=== PATIENT | female | born 1945 | race Caucasian/White ===

== ENCOUNTER → 2017-07-16 09:03 | Outpatient (CLI) | payer MEDICARE, OTHER, SELFPAY ==
[2017-07-16 12:12] LABS: Absolute Neutrophil Count 3.9 X10^3/uL (2.0-7.7); Basophil# 0.03 X10^3/uL; Basophil% 0.5 % (0-1); Eosinophil# 0.31 X10^3/uL; Eosinophils% 5.5 % (0-5); Hemoglobin 13.8 g/dl (12.0-15.0); Lymphocyte % 17.8 % (19-41); Mean Corp Hgb Conc 33.7 g/gl (32-36); Mean Corpuscular Hgb 30.2 pg (27.0-32.0); Mean Corpuscular Volume 89.7 fL (81-99); Mean Platelet Vol. 10.2 fl (6.2-12.0); Monocyte# 0.38 X10^3/uL; Monocyte% 6.7 % (0-10); Neutrophil % 69.3 % (47-70); POSITIVE COUNT NO; POSITIVE DIFFERENTIAL NO; POSITIVE MORPHOLOGY NO; Platelet Count 134 K/mm3 (150-450); RBC Distribution Width SD 45.9 fl (35.1-43.9); Red Blood Count 4.57 M/mm3 (4.2-5.4); White Blood Count 5.6 K/mm3 (4.4-11.0)
[2017-07-16 12:35] LABS: ALB/GLOB Ratio 1.2 RATIO (0.9-2.4); AST(SGOT) 25 U/L (15-37); Alanine Aminotransfer ALT/SGPT 24 U/L (13-56); Albumin, Serum 3.8 g/dL (3.2-5.0); Alkaline Phosphatase 129 U/L (45-117); Anion Gap 7 (5-15); BUN 20 mg/dL (7-18); BUN/Creat Ratio 29.2 RATIO (10-20); Calcium,Total 8.5 mg/dL (8.5-10.1); Chloride 106 mmol/L (98-107); Cholesterol 190 mg/dL (200); Creatinine, Serum 0.68 mg/dL (0.55-1.02); EST Glomerular Filtration Rate 90 mL/min (>60); Est Glom Filt Rate - Afr Amer 109 mL/min (>60); Globulin 3.1 g/dL (2.2-4.2); Glucose 96 mg/dL (74-106); High Density Lipoprotein 36 mg/dL; Potassium 4.2 mmol/L (3.5-5.1); Protein, Total 6.9 g/dL (6.4-8.2); Sodium Level 143 mmol/L (136-145); Thyroid Stim Hormone (TSH) 2.74 uIU/mL (0.358-3.74); Triglycerides 124 mg/dL; Very Low Density Lipoprotein 25 mg/dL (5-40)
== END ==
PROVIDERS: Family Provider Family Medicine; PCP Family Medicine; Visit Provider Family Medicine
DX: E78.5 Hyperlipidemia, unspecified (principal); R63.4 Abnormal weight loss; R53.83 Other fatigue; Z85.3 Personal history of malignant neoplasm of breast
CPT/HCPCS: 36415; 80053; 80061; 84443; 85025

== ENCOUNTER → 2017-08-25 13:06 | Outpatient (CLI) | payer MEDICARE, OTHER, SELFPAY ==
--- NOTE | 2017-08-25 13:08 | BI_ITS ---
MAMMOGRAPHY - BILATERAL SCREENING REASON FOR EXAM: Female, 72 years old. Routine annual screening examination. PERTINENT HISTORY: Personal history of breast cancer. Prior left lumpectomy and radiation treatment. On with breast cancer. TECHNIQUE: Digital bilateral breast rosales (3D mammographic acquisition) in the CC and MLO projections. 2-D mediolateral oblique (MLO) and craniocaudad (CC) views of both breasts were obtained. CAD: Full Field Digital Mammography with Computer Added Detection was performed. COMPARISON: Comparison is made with prior outside examination dated August 05, 2016. FINDINGS: Breast Composition: The breasts are almost entirely fatty. The patient is status post lumpectomy in the upper deep portion of the left breast. Postoperative changes are seen. There has been no change as compared to prior study. No other significant abnormalities are identified. There has been no significant change since the prior study. BI/Bilat Brst Screen Rosales Add-On IMPRESSION: Stable bilateral screening mammogram. Yearly follow-up mammogram recommended. (A) ASSESSMENT CATEGORY: BIRADS Category 2: Benign. A letter regarding these results will be sent to the patient by the facility within 30 days. Approximately 10% of breast cancers are not detected by mammography. A normal mammogram should not delay biopsy of a clinically suspicious abnormality. [id number] Electronically Signed: Elder Christine MD at 9:25 EDT Tel [phone], Service support ,
--- NOTE | 2017-08-25 13:08 | BI_ITS ---
MAMMOGRAPHY - BILATERAL SCREENING REASON FOR EXAM: Female, 72 years old. Routine annual screening examination. PERTINENT HISTORY: Personal history of breast cancer. Prior left lumpectomy and radiation treatment. On with breast cancer. TECHNIQUE: Digital bilateral breast edward (3D mammographic acquisition) in the CC and MLO projections. 2-D mediolateral oblique (MLO) and craniocaudad (CC) views of both breasts were obtained. CAD: Full Field Digital Mammography with Computer Added Detection was performed. COMPARISON: Comparison is made with prior outside examination dated August 05, 2016. FINDINGS: Breast Composition: The breasts are almost entirely fatty. The patient is status post lumpectomy in the upper deep portion of the left breast. Postoperative changes are seen. There has been no change as compared to prior study. No other significant abnormalities are identified. There has been no significant change since the prior study. BI/SCREENING MAMM (CAD), BILAT IMPRESSION: Stable bilateral screening mammogram. Yearly follow-up mammogram recommended. (A) ASSESSMENT CATEGORY: BIRADS Category 2: Benign. A letter regarding these results will be sent to the patient by the facility within 30 days. Approximately 10% of breast cancers are not detected by mammography. A normal mammogram should not delay biopsy of a clinically suspicious abnormality. [id number] Electronically Signed: Elder Christine MD at 9:25 EDT Tel [phone], Service support ,
== END ==
PROVIDERS: Family Provider Family Medicine; PCP Family Medicine; Visit Provider Family Medicine
DX: Z12.31 Encounter for screening mammogram for malignant neoplasm of breast (principal)
CPT/HCPCS: 77063; 77067

== ENCOUNTER → 2017-10-06 10:24 | Outpatient (CLI) | payer MEDICARE, OTHER, SELFPAY ==
[2017-10-06 12:12] LABS: Magnesium 2.1 mg/dL (1.6-2.6); Potassium 4.4 mmol/L (3.5-5.1)
== END ==
PROVIDERS: Family Provider Family Medicine; PCP Family Medicine; Visit Provider Family Medicine
DX: R00.2 Palpitations (principal)
CPT/HCPCS: 36415; 83735; 84132

== ENCOUNTER → 2017-10-18 10:55 | Outpatient (CLI) | payer MEDICARE, OTHER, SELFPAY | PROVIDERS: Family Provider Family Medicine; PCP Family Medicine; Visit Provider Family Medicine | DX: R00.2 Palpitations (principal); R25.2 Cramp and spasm; I10 Essential (primary) hypertension | CPT/HCPCS: 93225; 93226 ==

== ENCOUNTER → 2018-04-12 13:19 | Outpatient (CLI) | payer MEDICARE, OTHER, SELFPAY ==
[2018-04-12 13:29] LABS: Mucous, Urine 0 SEEN /hpf (<or=2+); Red Blood Cells-Urine 0 SEEN /hpf (0-5)
[2018-04-12 15:22] LABS: Color, Urine Yellow (Yellow); Glucose, Dipstick Normal (Normal); Ketone-Dipstick Negative (Negative); Leukocyte Esterase-Dipstick 500 /ul (Negative); Nitrite-Dipstick Negative (Negative); Occult Blood-Urine Negative /ul (Negative); Protein-Dipstick Negative (Negative); Specific Gravity, Urine 1.015 (1.002-1.030); Urine Bilirubin Dipstick Negative (Negative); Urine Clarity Clear (Clear); Urine Urobilinogen Normal (Normal)
[2018-04-12 15:28] LABS: Bacteria RARE /hpf (None Seen); Squamous Epithelial Cells - UA 0-5 SEEN /hpf (5-10); Transitional Epithelial - Ur 0-5 SEEN /hpf (0-5); White Blood Cells 10-25 SEEN /hpf (0-5)
[2018-04-12 15:48] LABS: Absolute Neutrophil Count 3.9 X10^3/uL (2.0-7.7); Basophil# 0.04 X10^3/uL; Basophil% 0.7 % (0-1); Eosinophil# 0.34 X10^3/uL; Eosinophils% 5.8 % (0-5); Hematocrit 41.7 % (37-47); Hemoglobin 14.1 g/dl (12.0-15.0); Lymphocyte % 18.8 % (19-41); Mean Corp Hgb Conc 33.8 g/gl (32-36); Mean Corpuscular Hgb 30.1 pg (27.0-32.0); Mean Corpuscular Volume 89.1 fL (81-99); Mean Platelet Vol. 10.3 fl (6.2-12.0); Monocyte# 0.45 X10^3/uL; Monocyte% 7.7 % (0-10); Neutrophil # 3.91 X10^3/uL (2.7-7.7); Neutrophil % 66.7 % (47-70); Platelet Count 123 K/mm3 (150-450); RBC Distribution Width CV 13.6 % (11.6-14.6); RBC Distribution Width SD 44.3 fl (35.1-43.9); Red Blood Count 4.68 M/mm3 (4.2-5.4); White Blood Count 5.9 K/mm3 (4.4-11.0)
[2018-04-12 15:50] LABS: POSITIVE COUNT NO; POSITIVE DIFFERENTIAL NO; POSITIVE MORPHOLOGY NO
[2018-04-12 15:59] LABS: Erythrocyte Sedimentation Rate 2 mm/hr (0-30)
[2018-04-12 16:12] LABS: CRP 2.96 mg/L (0.0-3.0); Lipase 171 U/L (73-393)
[2018-04-14 15:20] LABS: Carbohydrate Ag 19-9 2261 4 U/mL (0-35); Carcinoembryonic Antigen 1.1 ng/mL (0.0-4.7)
--- OUTSIDE RECORDS SUMMARY | 2018-07-15 00:04 | XMS RPT_ITS ---
:1945 Author Organization OHIP Support Name Relationship Address Phone KOHLILAZARA Unavailable [address] + [place] [address] R Unavailable Unavailable Unavailable LAZARA KOHLI Unavailable [address] + [place] [address] R Unavailable Unavailable Unavailable LAZARA KOHLI Unavailable [address] + [place] [address] R Unavailable Unavailable Unavailable LAZARA KOHLI Unavailable [address] + [place] [address] R Unavailable Unavailable Unavailable LAZARA KOHLI Unavailable [address] + [place] [address] R Unavailable Unavailable Unavailable LAZARA KOHLI Unavailable [address] + [place] [address] R Unavailable Unavailable Unavailable LAZARA KOHLI Unavailable [address] + [place] [address] R Unavailable Unavailable Unavailable LAZARA KOHLI Unavailable [address] + [place] [address] R Unavailable Unavailable Unavailable LAZARA KOHLI Unavailable [address] + [place] [address] R Unavailable Unavailable Unavailable LAZARA KOHLI Unavailable [address] + [place] [address] UE Unavailable Unavailable Unavailable LAZARA KOHLI Unavailable [address] + [place] [address] UE Unavailable Unavailable Unavailable LAZARA KOHLI Unavailable [address] + [place] [address] UE Unavailable Unavailable Unavailable Care Team Providers Name Role Phone Dominic Holcomb Attending Unavailable Dominic Holcomb Primary Care Unavailable Dominic Holcomb Attending Unavailable Dominic Holcomb Referring Unavailable Dominic Holcomb Primary Care Unavailable Diane, Coleman Attending Unavailable Diane, Coleman Referring Unavailable Zhang, Dominic Primary Care Unavailable Diane, Coleman Attending Unavailable Diane, Coleman Referring Unavailable Zhang, Dominic Primary Care Unavailable Harley Andre Attending Unavailable Diane, Coleman Referring Unavailable Isckarus, Mansour Attending Unavailable Zhang, Dominic Primary Care Unavailable Zhang, Dominic Attending Unavailable Zhang, Dominic Primary Care Unavailable Zhang, Dominic Attending Unavailable Zhang, Dominic Primary Care Unavailable Zhang, Dominic Attending Unavailable Zhang, Dominic Primary Care Unavailable Zhang, Dominic Attending Unavailable Zhang, Dominic Referring Unavailable Zhang, Dominic Primary Care Unavailable Aldair Fitzgerald Attending Unavailable Isckarus, Mansour Attending Unavailable Zhang, Dominic Primary Care Unavailable Isckarus, Mansour Consulting Unavailable PROBLEMS PROBLEMS DATE TYPE CONDITION / CODE ATTENDING STATUS SOURCE 05/12/2018 Unknown R22.1 - Localized Coleman Contreras Active [place] swelling, mass and Community lump, neck / Hospital R22.1(ICD-10) Repository 05/04/2018 Unknown Z01.810 - Encounter Andre Souza Active [place] for preprocedural [facility] Hospital examination / Repository Z01.810(ICD-10) 04/12/2018 Unknown R59.1 - Generalized Dominic Holcomb Active [place] enlarged lymph nodes Community / R59.1(ICD-10) Hospital Repository 04/12/2018 Unknown D48.7 - Neoplasm of Dominic Holcomb Active [place] uncertain behavior Community of other specified Hospital sites / Repository D48.7(ICD-10) 10/18/2017 Unknown R25.2 - Cramp and Dominic Holcomb Active [place] spasm / Community R25.2(ICD-10) Hospital Repository 10/18/2017 Unknown I10 - Essential ZhangDominic begum Active [place] (primary) Community hypertension / Hospital I10(ICD-10) Repository 11/23/2017 Unknown R00.2 - Palpitations Aldair Fitzgerald Active [place] / R00.2(ICD-10) [facility] Hospital Repository 07/16/2017 Unknown R63.4 - Abnormal ZhangDominic begum Active [place] weight loss / Community R63.4(ICD-10) Hospital Repository 07/16/2017 Unknown Z85.3 - Personal Dominic Holcomb Active [place] history of malignant Community neoplasm of breast / Hospital Z85.3(ICD-10) Repository 07/16/2017 Unknown E78.5 - Dominic Holcomb Active [place] Hyperlipidemia, Community unspecified / Hospital E78.5(ICD-10) Repository 07/16/2017 Unknown R53.83 - Other Dominic Holcomb Active [place] fatigue / Community R53.83(ICD-10) Hospital Repository PROCEDURES PROCEDURES No Procedure Records FoundRESULTS RESULTS CBC W/DIFF, AUTOMATED Collected: 05/18/2018 Status: F Source: [place] 11:09 AM [facility] REPOSITORY Order Comment: Reason for Laboratory Test NEW PATIENT TYPE CODE TESTS RESULT OUT OF RANGE REFERENCE UNITS LAB L100.1000 4.4-11.0 K/mm3 Normal WBC 5.4 LAB L100.1200 4.2-5.4 M/mm3 Normal RBC 4.54 LAB L100.1300 12.0-15.0 g/dl Normal HGB 13.9 LAB L100.1400 37-47 % Normal HCT 40.7 LAB L100.1500 81-99 fL Normal MCV 89.6 LAB L100.1600 27.0-32.0 pg Normal MCH 30.6 LAB L100.1700 32-36 g/gl Normal MCHC 34.2 LAB L100.1810 11.6-14.6 % Normal RDW CV 13.7 LAB L100.1820 35.1-43.9 fl High RDW SD 44.5 LAB L100.1900 150-450 K/mm3 Low PLT 105 LAB L100.2000 6.2-12.0 fl Normal MPV 9.8 LAB L100.2100 47-70 % Normal NEUT% 61.0 LAB L100.2200 19-41 % Normal LY% 19.2 LAB L100.2300 0-10 % High MONO% 10.5 LAB L100.2400 0-5 % High EO% 8.5 LAB L100.2500 0-1 % Normal BASO% 0.6 LAB L100.2550 0.0-0.9 % Normal IM GRAN % 0.200 Result Comment: IG% - Immature Granulocytes (promyelocytes, myelocytes and metamyelocytes) > 1% indicates that a LEFT SHIFT is Present. LAB L100.2620 2.0-7.7 X10 3/uL Normal Absolute Neut 3.3 LAB L100.2720 0.83-4.51 X10 3/ul Normal Absolute Lymph 1.04 Performed By: #### L100.0100 #### [facility] [place], [address] COMPREHENSIVE METABOLIC Collected: 05/18/2018 Status: F Source: [place] 11:09 AM [facility] REPOSITORY Order Comment: Reason for Laboratory Test NEW PATIENT Serial Specimen #1, #2 or #3? 1 TYPE CODE TESTS RESULT OUT OF RANGE REFERENCE UNITS LAB L501.0100 74-106 mg/dL Normal GLU 89 Result Comment: Please note revised GLUCOSE reference range effective 2017. LAB L501.1000 7-18 mg/dL High BUN 19 LAB L501.1100 0.55-1.02 mg/dL Normal CREAT,SERUM 0.62 Result Comment: The validity of the calculated GFR AND GFRAA in patients over 70 years has not been determined. Clinical correlation is essential. LAB L501.1110 >60 mL/min Normal EST GFR 100 Result Comment: Non- GFR Calc LAB L501.1115 >60 mL/min Normal EST GFR - AA 121 Result Comment: GFR Calc LAB L501.1255 ml/min Normal Estimated CRCL 54.71 LAB L501.1300 10-20 RATIO High BUN/CRE 30.4 LAB L501.1500 6.4-8. g/dL Normal 2 T PROT 7.0 LAB L501.1800 3.2-5. g/dL Normal 0 ALB 4.0 LAB L501.1950 2.2-4. g/dL Normal 2 GLOB 3.0 LAB L501.2000 0.9-2. RATIO Normal 4 A/G 1.3 LAB L501.2200 8.5-10 mg/dL Normal .1 CA 9.0 LAB L501.4100 15-37 U/L Normal AST 26 LAB L501.4305 45-117 U/L High ALK P 179 LAB L501.4405 13-56 U/L Normal ALT 22 LAB L501.4600 0.20-1 mg/dL Normal .00 T BILI 0.90 LAB L501.5300 136-14 mmol/L Normal 5 NA 143 LAB L501.5600 3.5-5. mmol/L Normal 1 K 4.2 LAB L501.5900 98-107 mmol/L Normal CL 106 LAB L501.6100 21.0-3 mmol/L Normal 2.0 CO2 27.0 LAB L501.6200 5-15 Normal GAP 10 Performed By: #### L500.4050, L501.1400, L504.2610 #### [facility] [address] [place], [address] URIC ACID Collected: 05/18/2018 Status: F Source: [place] 11:09 AM [facility] REPOSITORY Order Comment: Reason for Laboratory Test NEW PATIENT Serial Specimen #1, #2 or #3? 1 TYPE CODE TESTS RESULT OUT OF RANGE REFERENCE UNITS LAB L501.1400 2.6-6.0 mg/dL High URIC 7.1 Result Comment: The drugs N-Acetylcysteine and Metamizole may falsely depress this assay. Performed By: #### L500.4050, L501.1400, L504.2610 #### [facility] [address] [place], [address] LDH Collected: 05/18/2018 Status: F Source: [place] 11:09 AM [facility] REPOSITORY Order Comment: Reason for Laboratory Test NEW PATIENT Serial Specimen #1, #2 or #3? 1 TYPE CODE TESTS RESULT OUT OF RANGE REFERENCE UNITS LAB L504.2610 84-246 U/L Normal LDH 183 Performed By: #### L500.4050, L501.1400, L504.2610 #### [facility] [address] [place], [address] ONCOLOGY HISTORY AND Observed: 05/18/2018 Status: F Source: [place] PHYSICAL 10:52 AM [facility] REPOSITORY [facility] Medical Records Department [address] [facility] [place] [address] History and Physical 05/18/18 1034 MR#: [id number] Acct: [id number] Name: DOROTHY KOHLI Rep #: [id number] : 1945 72 From: Turner Garcia MD PCP: Dominic Holcomb DO Status: REG RCR Y Location: OMD - Problem List (1) Follicular lymphoma Status: Acute (2) Thrombocytopenia Status: Chronic Subjective Date of Service:: 05/18/18 Chief Complaint: Lymphoma, new diagnosis History of Present Illness: Patient is a 72-year-old female with a past medical history notable for stage 0 carcinoma of the left breast status post lumpectomy followed by radiation therapy and then tamoxifen for 3 years (discontinued because of hot flashes), care was at [facility]. March 2018 around Christmastime she noticed painlessly enlarging lymph nodes in her neck. She did seek medical attention and a biopsy from an enlarging right neck mass revealed a low grade follicular lymphoma. In retrospect and following recent scans she admitted that she had also noted some enlarged lymph nodes in her armpits and groins. Over the past 2 years or so she has lost 30 pounds of weight but she has been actively doing so she still has a good appetite. She still suffers from the hot flashes since the time of tamoxifen even though the drug has been discontinued but these have not changed. There is no drenching night sweats. March 2018 CT neck: Extensive adenopathy from levels 1 through 7. The largest is on the left side of level 4 and measures 3.4 x 2.[address] cm. March of 2018 CT chest: Pathologically enlarged supraclavicular, axillary, mediastinal and hilar lymph nodes highly suspicious for an underlying neoplastic process such as lymphoma. March 2018 CT abdomen and pelvis: Extensive lymphadenopathy throughout the abdomen and pelvis most pronounced within the mesentery and retroperitoneum concerning for an underlying neoplastic process such as lymphoma. Splenomegaly. The largest lymph node mass visualized in March of 2018 is a conglomerate of lymph nodes within the mesentery which measures up to 10.5 x 4.5 x 13.5 cm. Health History: Past Medical History Cancer: Breast cancer Past Medical History (Last Reviewed 05/18/18 @ 09:52 by Carli Castle) Arthritis (Acute) Breast cancer (Acute) Glaucoma (Acute) H/O: hysterectomy (Acute) Hearing problem (Acute) Macular degeneration of left eye (Acute) Seasonal allergies (Acute) Vision problems (Acute) Past Surgical History (Last Reviewed 05/18/18 @ 09:53 by Carli Castle) History of appendectomy (Acute) History of lumpectomy of left breast (Acute) History of vein stripping (Acute) Hx of tonsillectomy (Acute) Family History (Last Reviewed 05/18/18 @ 09:53 by Carli Castle) Aunt Breast cancer Brother Myocardial infarction Father CVA (cerebral vascular accident) Dementia Hypertension Mother Dementia Hypertension Arthritis Allergies/Adverse Reactions: Allergy/AdvReac Type Severity Reaction Status Date / Time No Known Allergies Allergy Unverified 05/18/18 09:54 Risk Factors Social History Smoking Status Never smoker Tobacco Risk Data: Tobacco Risk Smoking Status Never smoker Type of tobacco: Smokeless tobacco usage: Never Items/Day: Year started: Years used: Counseled to quit/cut down: Reason for no counseling performed: Reason for no pharmacotherapy: Tobacco use comments: Passive smoke exposure: No Substance Risk Drug use: No Caffeine use [drinks/day]: 2 Alcohol use: Yes Type of alcohol: occasionally Drinks per day: Has patient felt the need to cut down: Has the patient been annoyed by complaints: Has the patient felt guilty about drinking: 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 Denies: Fever, Sweats, Weight loss, Appetite change, Chills Cardiovascular:: Denies: Chest pain, Palpitations, Dyspnea on exertion, Orthopnea, PND, Shortness of breath Respiratory: Denies: Cough, Hemoptysis, Shortness of Breath, Wheezing Gastrointestinal:: Denies: Abdominal pain, Nausea, Vomiting, Diarrhea, Constipation, Hematochezia Genitourinary: Denies: Dysuria, Hematuria, 15, Flank pain Musculoskeletal:: Denies: Back pain, Myalgia, Arthralgia Skin: Denies: Rash, Skin Changes, Wounds Neurological:: Denies: Headache, Dizziness, Visual changes, Tinnitus, Hearing loss Psychiatric: Denies: Anxiety, Depression, Homicidal Ideations, Suicidal Ideations Vital Signs Height 5 ft 9.5 in Weight: 90.809 kg Weight in Pounds 200.2 lbs Pulse Ox 95 - Physical Exam General: Alert, Oriented x3, No apparent distress, - - ECOG 0, overweight HEENT: Atraumatic, PERRLA, EOMI, Normocephalic Oropharynx:: Dry mucosa Neck:: Supple, Trachea midline. Negative for: JVD, bilateral Cardiac:: Regular rate, Regular rhythm, Normal S1, Normal S2. Negative for: Murmur Lungs: Clear to auscultation, Excusion symmetrical. Negative for: Rhonchi, Wheezes Abdomen:: Soft, Non-tender, Non-distended. Negative for: Hepatosplenomegaly Extremities:: Negative for: Cyanosis, Edema Neurological: Neuro grossly intact Skin:: Negative for: Lesions, Rash, Petechiae, Ecchymosis Psychiatric:: Appropriate affect, Euthymic Lymphatics:: Cervical lymphadenopathy, Supraclavicular lymphadenopathy, Axillary lymphadenopathy, Inguinal lymphadenopathy, - - Generalized lymph node enlargement 1-2 cm overall, the largest lymph node mass is not the right neck measuring 3 cm and slightly tender at the site of recent biopsy Assessment and Plan 72-year-old female with at least stage IIIA low-grade follicular lymphoma diagnosed by biopsy and CT imaging March 2018. The patient is asymptomatic apart from being aware of the enlarging lymph nodes. Nonetheless she does have a CT evidence of high tumor burden by GELF criteria with a conglomerate lymph node mass in the abdomen measuring over 7 cm . FLIPI score is pending further workup at this time She has a chronic Mild thrombocytopenia (at least since June 2017) That is most likely related to her lymphoma. Plan: 1. CBC, CMP, LDH, uric acid and hepatitis serology. 2. PET-CT to complete initial staging. 3. Bone marrow biopsy to complete staging will be prior to initiating any systemic therapy. Patient was seen with her impression and plan discussed Medications: Prescriptions This Visit Medication Instructions Recorded Cholecalciferol (Vitamin D3) 2,000 unit PO DAILY 05/16/18 [Vitamin D3] Primary Care Provider: Dominic Holcomb DO Referring Provider: 05/18/18 1052 <Electronically signed by Turner Garcia MD> Date Turner Garcia MD Cosigner Signature: Date (if applicable) CC: Coleman Contreras MD; Turner Garcia MD; Dominic Holcomb DO Signed LYMPH NODE REGIONAL Observed: 05/03/2018 Status: F Source: [place] RESECTION 10:00 AM [facility] REPOSITORY Patient: DOROTHY KOHLI : 1945 (72/F) Acct Num: [id number] Phys: Diane TOBIAS,Coleman Unit Num: [id number] Loc: LABSPEC Specimen: [id number] Received: 05/03/18 - 1154 Spec Type: LYM NODES THIS IS A CORRECTED REPORT TISSUES 1 TISSUES: Lymph node of neck, NOS COMMENT Immunohistochemistry ([id number]) supports the above diagnosis. Flow cytometry analysis performed at [facility] supports the above diagnosis. The complete flow analysis is viewable in patient's EMR. Touch prep smears (Diff-Quik and H AND E stains) reveal a polytypic lymphocyte population. Case has been reviewed in consultation with Dr. Viveros who concurs with the above diagnosis. IDC:SJ GROSS DESCRIPTION Received in saline is one container labeled with the patient's name and designated lymph node. The specimen consists of one irregular fragment of light cho soft tissue that measures 2 x 1.5 x 0.8 cm. The specimen is totally submitted in two cassettes. A portion is submitted for flow cytometry analysis. / RY:meghna 05/03/18 TC:0 CPT: 58910, 95850 HEADER OPERATION: Right neck biopsy PRE-OP DIAGNOSIS: Right neck mass TISSUE SUBMITTED: Lymph node, right neck (in saline) MICROSCOPIC DESCRIPTION Slides are reviewed. MICROSCOPIC DIAGNOSIS Right neck lymph node, biopsy: Consistent with follicle center lymphoma, low grade. AM:meghna 05/05/18 Signed Coleman Ravi DO 05/06/18 <signature on file> Performed By: #### PLYM #### [facility] [address] [place], [address] MISCELLANEOUS LAB Collected: 05/03/2018 Status: F Source: [place] PROCEDURE 10:00 AM [facility] REPOSITORY Order Comment: Comments: [id number] Rt neck mass bx Test(s) Ordered: Flow [id number] TYPE CODE TESTS RESULT OUT OF RANGE REFERENCE UNITS LAB L801.1541 Normal [facility] LAB FLOW SEE PATH TEST Performed By: #### L801.1541 #### [place] [facility] [address] [place], [address] IMMUNOHISTOCHEMISTRY Observed: 05/03/2018 Status: F Source: [place] 12:00 AM [facility] REPOSITORY Patient: DOROTHY KOHLI : 1945 (72/F) Acct Num: [id number] Phys: Coleman Contreras MD Unit Num: [id number] Loc: LABSPEC Specimen: [id number] Received: 05/04/18 - 1046 Spec Type: IMMUNO TISSUES 1 TISSUES: Lymph node of neck, NOS - #2 SPECIMEN INFORMATION: Tissue Source: Lymph node, right neck Clinical Info: Right neck mass Specimen Number: [id number] #2 CPT code: 27717, 46714 x17 METHODOLOGY: Deparaffinized sections of prefer/formalin-fixed tissue or PAP/DQ stained slides are incubated with monoclonal/polyclonal antibodies/oligonucleotide probes. Localization is made via biotin free immunoperoxidase method. Appropriate controls are performed and reacted as expected. Results on target cell population are indicated in the following table: RESULTS: ANTIBODY / CLONE RESULT Block 2 CD3 (PS1) negative CD5 (SP10) negative CD20 (L26) positive CD45 (RP2/18) positive CD79a (11E3) positive CD138 (B-A38) negative AE1-3 (AE1/AE3/PCK26) negative CD10 (56C6) positive CD15 (MMA) negative CD23 (1B12) negative CD30 (Ajit-H2) negative BCL-2 (bcl-2/100/D5) positive BCL-6 (LV250R/A8) positive Cyclin D1/BCL-1 (SP4) negative MUM1 (MRQ-43) positive, <10% C-MYC (Y69) negative CD43 (L60) negative Ki-67 (30-9) positive, low These tests were developed and their performance characteristics determined by [facility]. They may not have been cleared or approved by the U.S. Food and Drug Administration. The FDA has determined that such clearance or approval is not necessary. INTERPRETATION: Lymph node, right neck, biopsy: Consistent with follicle center lymphoma, low grade. AM:rg 05/05/18 Case has been reviewed in consultation with Dr. Viveros who concurs with the above diagnosis. IDC:[facility] [place] [id number] Signed Coleman Ravi DO 05/06/18 <signature on file> Performed By: #### PIMM #### [facility] [address] [place] [address]. [place], [address] 12 LEAD ELECTROCARDIOGRAM Observed: 04/22/2018 Status: F Source: [place] 3:30 PM [facility] REPOSITORY [facility] Cardiovascular Services [address] [place] [address] 12 Lead EKG 04/20/18 1553 MR#: [id number] Acct: [id number] Name: DOROTHY KOHLI Rep #: [id number] : 1945 72 From: Andre Souza MD Attending Dr: Coleman Contreras MD Status: REG CLI Ordering Dr: Coleman Contreras MD Date: 04/20/18 Location: LAB Sex: F C Admitted: Test Reason : PRE OP Blood Pressure : / mmHG Vent. Rate : 073 BPM Atrial Rate : 073 BPM P-R Int : 156 ms QRS Dur : 110 ms QT Int : 398 ms P-R-T Axes : 049 -09 047 degrees QTc Int : 438 ms Normal sinus rhythm Confirmed by HARLEY TOBIAS, ANDRE ([id number]), general expeditor LEXI HUTCHINSON ([id number]) on 04/22/2018 3:29:29 PM Referred By: Coleman Contreras Confirmed By:ANDRE SOUZA MD 04/22/18 1529 Date Andre Souza MD CC: Coleman Contreras MD; Dominic Zhang Signed CBC-COMPLETE BLOOD CNT Collected: 04/20/2018 Status: F Source: [place] NO DIFF 3:38 PM [facility] REPOSITORY TYPE CODE TESTS RESULT OUT OF RANGE REFERENCE UNITS LAB L100.1000 4.4-11.0 K/mm3 Normal WBC 5.1 LAB L100.1200 4.2-5.4 M/mm3 Normal RBC 4.44 LAB L100.1300 12.0-15.0 g/dl Normal HGB 13.5 LAB L100.1400 37-47 % Normal HCT 39.6 LAB L100.1500 81-99 fL Normal MCV 89.2 LAB L100.1600 27.0-32.0 pg Normal MCH 30.4 LAB L100.1700 32-36 g/gl Normal MCHC 34.1 LAB L100.1810 11.6-14.6 % Normal RDW CV 13.5 LAB L100.1820 35.1-43.9 fl High RDW SD 44.0 LAB L100.1900 150-450 K/mm3 Low PLT 110 LAB L100.2000 6.2-12.0 fl Normal MPV 10.0 Performed By: #### L100.0500 #### [facility] [place], [address] BASIC METABOLIC Collected: 04/20/2018 Status: F Source: [place] PROFILE (BMP) 3:38 PM [facility] REPOSITORY TYPE CODE TESTS RESULT OUT OF RANGE REFERENCE UNITS LAB L501.0100 74-106 mg/dL Normal GLU 101 Result Comment: Fasting Glucose result from 100 to 125 mg/dL suggests IMPAIRED HOMEOSTASIS per A.D.A. criteria. Please note revised GLUCOSE reference range effective 2017. LAB L501.1000 7-18 mg/dL High BUN 19 LAB L501.1100 0.55-1.02 mg/dL Normal CREAT,SERUM 0.98 Result Comment: The validity of the calculated GFR AND GFRAA in patients over 70 years has not been determined. Clinical correlation is essential. LAB L501.1110 >60 mL/min Normal EST GFR 60 Result Comment: Non- GFR Calc LAB L501.1115 >60 mL/min Normal EST GFR - AA 72 Result Comment: GFR Calc LAB L501.1300 10-20 RATIO Normal BUN/CRE 19.5 LAB L501.2200 8.5-10.1 mg/dL CA Normal 9.1 LAB L501.5300 136-145 mmol/L NA Normal 144 LAB L501.5600 3.5-5.1 mmol/L K Normal 4.0 LAB L501.5900 98-107 mmol/L CL Normal 106 LAB L501.6100 21.0-32.0 mmol/L Normal CO2 31.0 LAB L501.6200 5-15 Normal GAP 7 Performed By: #### L500.2500 #### [facility] [address] [place], [address] CREATININE FINGERSTICK Collected: 04/18/2018 Status: F Source: [facility] 3:54 PM [facility] REPOSITORY TYPE CODE TESTS RESULT OUT OF RANGE REFERENCE UNITS LAB L9100.0210 0.55-1.02 mg/dL Normal CREATININE WB 1.0 Performed By: #### L9100.0200 #### [facility] Point of Care [address] [place] [address] ABDOMEN/PELVIS W IV CONT Observed: 04/18/2018 Status: F Source: [place] ONLY 3:44 PM [facility] REPOSITORY [facility] Imaging Services [address] [place] [address] Abdomen/Pelvis W IV Cont ONLY MR#: [id number] Acct: [id number] Name: DOROTHY KOHLI Rep #: [id number] : 1945 F 72 From: Elena James MD PCP: Dominic Holcomb DO Status: REG CLI Study: Abdomen/Pelvis W IV Cont ONLY Date of Exam: 04/18/18 Exam# [id number] Ordering Dr: Dominic Holcomb DO STUDY: CT ABDOMEN AND PELVIS WITH CONTRAST REASON FOR EXAM: Female, 72 years old. Breast cancer with radiation. Left lumpectomy. Swollen lymph nodes. RADIATION DOSAGE (If Supplied By Facility): CTDIvol = ( 17.47 ) mGy, DLP = ( 2346.07 ) mGycm TECHNIQUE: Transaxial images were obtained from the dome of the diaphragm to the symphysis pubis without oral contrast. 100 ml of Isovue 300 contrast was administered. Sagittal and coronal images were reconstructed. Individualized dose optimization techniques were used for this CT. COMPARISON: None. FINDINGS: Please note there is a separate dedicated CT report of the chest. Normal liver. Normal gallbladder and extrahepatic biliary system. The spleen measures up to 20 cm in the craniocaudal dimension. Normal pancreas. There are pathologically enlarged lymph nodes within the holden hepatis, gastrohepatic region and mesentery. There is a conglomerate of lymph nodes within the mesentery which measures up to 10.5 x 4.5 x 13.5 cm. Normal bilateral adrenal glands. There is mild bilateral hydronephrosis present. Normal visualized stomach. Normal small intestine. Normal colon. There is non-visualization of the appendix. There is diffuse atherosclerotic calcification of the abdominal aorta, without a demonstrated aneurysm. Normal inferior vena cava. There is retroperitoneal lymphadenopathy with enlarged nodes greater than 10-15mm in the short axis. There are pathologically enlarged lymph nodes throughout the pelvis visualized as well; construction sales representative lymph nodes include a 2.3 cm in short axis left pelvic sidewall and a 1.6 cm right pelvic sidewall lymph node. There are enlarged inguinal lymph nodes measuring up to 2 cm on the right and 1.9 cm on the left. Normal urinary bladder. Normal abdominal wall. There are diffuse degenerative changes of the visualized lumbar spine. There is a grade 1 anterior spondylosis is of L4 on L5. CT/Abdomen/Pelvis W IV Cont ONLY IMPRESSION: Extensive lymphadenopathy throughout the abdomen and pelvis most pronounced within the mesentery and retroperitoneum concerning for an underlying neoplastic process such as lymphoma. Splenomegaly. Atherosclerosis. Degenerative changes. Electronically Signed: Elena James MD at 16:39 EST Tel , Service support , CC: Dominic Holcomb DO Police Judge: Signed CHEST WITH CONTRAST Observed: 04/18/2018 Status: F Source: [facility] 3:44 PM [facility] REPOSITORY [facility] Imaging Services [address] [place] [address] Chest WITH Contrast MR#: [id number] Acct: [id number] Name: DOROTHY KOHLI Rep #: [id number] : 1945 F 72 From: Elena James MD PCP: Dominic Holcomb DO Status: REG CLI Study: Chest WITH Contrast Date of Exam: 04/18/18 Exam# [id number] Ordering Dr: Dominic Holcomb DO STUDY: CT CHEST WITH CONTRAST REASON FOR EXAM: Female, 72 years old. Breast cancer with radiation. Lymphadenopathy. RADIATION DOSAGE (If Supplied By Facility): CTDIvol = ( 17.47 ) mGy, DLP = ( 2346.07 ) mGycm TECHNIQUE: Transaxial imaging was performed following intravenous administration of 100CC ml of Isovue 300 contrast material. Individualized dose optimization techniques were used for this CT. COMPARISON: None. FINDINGS: There are pathologically enlarged supraclavicular and axillary lymph nodes. 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 There is a round low-attenuation focus within the left lobe of the thyroid gland measuring up to 2.2 cm. There is no focal consolidation. There are no suspicious pulmonary nodules. There is a single bulla within the left upper lobe. There is minimal right basilar atelectasis. There are calcifications of the coronary arteries. 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 There are calcified nonpathologic enlarged left hilar and mediastinal lymph nodes visualized as well. Normal enhanced pulmonary arteries. Normal aorta arch and descending thoracic aorta. There are multi-level degenerative changes of the thoracic spine. There are postsurgical changes within the left breast. Please note there is a separate dedicated CT report of the abdomen and pelvis. CT/Chest WITH Contrast IMPRESSION: Pathologically enlarged supraclavicular, axillary, mediastinal and hilar lymph nodes highly suspicious for an underlying neoplastic process such as lymphoma. Indeterminate 2.2 cm low-attenuation focus within the left lobe of the thyroid gland, consider ultrasound for further evaluation. Atherosclerosis. Electronically Signed: Elena James MD at 18:00 EST Tel , Service support , CC: Dominic Holcomb DO Police Judge: Signed SOFT TISSUE NECK WITH Observed: 04/18/2018 Status: F Source: [facility] CONTR[facility] 3:44 PM [facility] REPOSIT[facility] Imaging Services [address] [place] [address] Soft Tissue Neck WITH Contrast MR#: [id number] Acct: [id number] Name: DOROTHY KOHLI Rep #: [id number] : 1945 F 72 From: Michael Corona MD PCP: Dominic Holcomb DO Status: REG CLI Study: Soft Tissue Neck WITH Contrast Date of Exam: 04/18/18 Exam# [id number] Ordering Dr: Dominic Holcomb DO STUDY: CT SOFT TISSUE NECK WITH CONTRAST REASON FOR EXAM: Female, 72 years old. History of breast cancer with radiation RADIATION DOSAGE (If Supplied By Facility): CTDIvol = ( 17.47 ) mGy, DLP = ( 2346.07 ) mGycm TECHNIQUE: The patient was scanned in a multi-detector CT scanner. High resolution transaxial imaging was performed following intravenous administration of 100CC ml of Isovue 300 contrast material. Sagittal and coronal images were reconstructed. Individualized dose optimization techniques were used for this CT. COMPARISON: None. FINDINGS: SUPRAHYOID HEAD AND NECK TIRE TECHNICIAN SPACE (INCLUDING SUPRAZYGOMATIC PORTION): Normal with no evidence of an accessory parotid lobe. No calcification in parotid duct. PARAPHARYNGEAL SPACE: Normal and symmetric. No evidence of asymmetric pterygoid plexus. RETROPHARYNGEAL SPACE: Normal with no enlarged nodes of Rouvier laterally CAROTID SPACE: Normal PERIVERTEBRAL SPACE: The prevertebral and paraspinal components are normal. PAROTID SPACE: Negative PHARYNGEAL MUCOSAL SPACE: The nasopharyngeal and oropharyngeal spaces including the tongue base are normal with no tonsillitis, adenoidal hypertrophy or any neoplastic processes. ORAL CAVITY : The mucosal surfaces including the anterior two thirds of the tongue and the submandibular and sublingual spaces are normal INFRAHYOID HEAD AND NECK: VISCERAL SPACE: The there is a left lobe of thyroid with a 2.2 cm area of low attenuation within in the enlarged left lobe THE CAROTID, RETROPHARYNGEAL, PERIVERTEBRAL and POSTERIOR CERVICAL SPACES (Containing The Spinal Accessory Lymph Nodes): Normal . ORBITS AND PARANASAL SINUSES: Negative CERVICAL LYMPH NODES: Extensive the left supraclavicular (level 4) adenopathy with the largest lymph node measuring 3.4 x 2.8 cm. Adenopathy is a level 1 level IIa and IIb bilaterally and level 3. 2 small low 5 lymph nodes bilaterally.. A large 2.2 cm right upper paratracheal (station 2R) is noted. CT/Soft Tissue Neck WITH Contrast IMPRESSION: The uterus spaces in the head and neck region clear except for the presence of a lesion in the left lobe of the thyroid gland. Extensive adenopathy from levels 1 through 7. The largest is on the left side of level 4 and measures 3.4 x 2.8 cm Electronically Signed: Michael Corona MD at 5:09 EST Tel , Service support , CC: Dominic Holcomb DO Police Judge: Signed URINALYSIS, COMPLETE Collected: 04/12/2018 Status: F Source: [facility] 1:21 PM [facility] REPOS[facility] Order Comment: How was Urine Obtained? CLEAN CATCH TYPE CODE TESTS RESULT OUT OF REFERENCE UNITS RANGE LAB L400.3000 Yellow COLOR Normal Yellow LAB L400.3050 Clear CLARITY Normal Clear LAB L400.3200 Normal mg/dl GLUCOSE, UR Normal Normal LAB L400.3300 Negative mg/dL BILIRUBIN Normal URINE Negative LAB L400.3400 Negative mg/dl KETONE UR Normal Negative LAB L400.3465 1.002-1.030 SP.GR. Normal DIPSTX 1.015 LAB L400.3550 5.0 - 8.0 pH UR Normal 6.0 LAB L400.3600 Negative mg/dl PROT DIPSTX Normal Negative LAB L400.3700 Normal mg/dl UROBILI Normal Normal LAB L400.3750 Negative NITRITE UR Normal Negative LAB L400.3780 Negative /ul OCCULT Normal BLOOD-UR Negative LAB L400.3800 Negative /ul LEUK High ESTERASE 500 LAB L400.4050 0-5 /hpf WBC Normal 10-25 SEEN LAB L400.4100 0-5 /hpf RBC-UA Normal 0 SEEN LAB L400.4150 5-10 /hpf SQUAM EPI Normal 0-5 SEEN LAB L400.4200 0-5 /hpf Normal TRANSITIONAL EP 0-5 SEEN LAB L400.4300 None Seen /hpf BACTERIA Normal RARE LAB L400.4350 <or=2+ /hpf MUCUS, Normal URINE 0 SEEN Performed By: #### L400.0001 #### [facility] [address] [place], [address] CBC W/DIFF, AUTOMATED Collected: 04/12/2018 Status: F Source: [facility] 1:21 PM [facility] TYPE CODE TESTS RESULT OUT OF RANGE REFERENCE UNITS LAB L100.1000 4.4-11.0 K/mm3 Normal WBC 5.9 LAB L100.1200 4.2-5.4 M/mm3 Normal RBC 4.68 LAB L100.1300 12.0-15.0 g/dl Normal HGB 14.1 LAB L100.1400 37-47 % Normal HCT 41.7 LAB L100.1500 81-99 fL Normal MCV 89.1 LAB L100.1600 27.0-32.0 pg Normal MCH 30.1 LAB L100.1700 32-36 g/gl Normal MCHC 33.8 LAB L100.1810 11.6-14.6 % Normal RDW CV 13.6 LAB L100.1820 35.1-43.9 fl High RDW SD 44.3 LAB L100.1900 150-450 K/mm3 Low PLT 123 LAB L100.2000 6.2-12.0 fl Normal MPV 10.3 LAB L100.2100 47-70 % Normal NEUT% 66.7 LAB L100.2200 19-41 % Low LY% 18.8 LAB L100.2300 0-10 % Normal MONO% 7.7 LAB L100.2400 0-5 % High EO% 5.8 LAB L100.2500 0-1 % Normal BASO% 0.7 LAB L100.2550 0.0-0.9 % Normal IM GRAN % 0.300 Result Comment: IG% - Immature Granulocytes (promyelocytes, myelocytes and metamyelocytes) > 1% indicates that a LEFT SHIFT is Present. LAB L100.2620 2.0-7.7 X10 3/uL Normal Absolute Neut 3.9 LAB L100.2720 0.83-4.51 X10 3/ul Normal Absolute Lymph 1.10 Performed By: #### L100.0100, L101.9900 #### [facility] [address] [facility] [id number] ERYTHROCYTE SED RATE Collected: 04/12/2018 Status: F Source: [facility] 1:21 PM [facility] TYPE CODE TESTS RESULT OUT OF RANGE REFERENCE UNITS LAB L102.0000 0-30 mm/hr Normal SED RATE 2 Performed By: #### L100.0100, L101.9900 #### [facility] [address] [facility] [id number] LIPASE Collected: 04/12/2018 Status: F Source: [facility] 1:21 PM [facility] TYPE CODE TESTS RESULT OUT OF RANGE REFERENCE UNITS LAB L501.2450 73-393 U/L Normal LIPASE 171 Performed By: #### L501.2450, L501.6710 #### [facility] [address] [facility] [address] CRP Collected: 04/12/2018 Status: F Source: [facility] 1:21 PM [facility] TYPE CODE TESTS RESULT OUT OF RANGE REFERENCE UNITS LAB L501.6710 0.0-3.0 mg/L Normal 2.96 C-REACTIVE PROT Result Comment: C-Reactive Protein (CRP) provides useful information for the diagnosis, therapy and monitoring of inflammatory processes and associated diseases. For the evaluation of Relative Risk for Cardiovascular Disease, a High Sensitivity CRP (HSCRP) should be ordered. Performed By: #### L501.2450, L501.6710 #### [facility] [address] [place], [address] Observed: 04/12/2018 Status: F Source: [facility] CULTURE, URINE 1:21 PM [facility] REPOS[facility] Urine Culture Culture exhibits no growth. Performed By: #### M100.0650 #### [facility] [address] [place], [address] CARCINOEMBRYONIC ANTIGEN Collected: 04/12/2018 Status: F Source: [facility] 1:21 PM [facility] TYPE CODE TESTS RESULT OUT OF RANGE REFERENCE UNITS LAB L3100.2300 0.0-4.7 ng/mL Normal CEA 1.1 Result Comment: Enrique ECLIA methodology Nonsmokers <3.9 Smokers <5.6 Performed at: [address] [id number] Employment Law Attorney: Felipe Rogers PhD, Phone: [phone] Performed By: #### L3100.2300, L3100.5017 #### [facility] (refer to report for specific site) refer to report for address and phone number CA 19-9 SERIAL Collected: 04/12/2018 Status: F Source: [facility] MONITOR 1:21 PM [facility] TYPE CODE TESTS RESULT OUT OF RANGE REFERENCE UNITS LAB L3100.5022 0-35 U/mL Normal CA 19-9 4 2261 Result Comment: Enrique ECLIA methodology LAB L3100.5025 Normal CA19-9 GRAPH Result Comment: Scanned image report available in EMR Performed By: #### L3100.2300, L3100.5017 #### [facility] (refer to report for specific site) refer to report for address and phone number MAGNESIUM Collected: 10/06/2017 Status: F Source: [facility] 10:26 AM [facility] TYPE CODE TESTS RESULT OUT OF RANGE REFERENCE UNITS LAB L501.5200 1.6-2.6 mg/dL Normal MG 2.1 Performed By: #### L501.5200, L501.5600 #### [facility] [address] [place], [place], [address] POTASSIUM Collected: 10/06/2017 Status: F Source: [facility] 10:26 AM [facility] TYPE CODE TESTS RESULT OUT OF RANGE REFERENCE UNITS LAB L501.5600 3.5-5.1 mmol/L Normal K 4.4 Performed By: #### L501.5200, L501.5600 #### [facility] [address] [place], [place], [address] SCREENING MAMM (CAD), Observed: 08/25/2017 Status: F Source: [facility] BILAT 1:09 PM [facility] REPOSIT[facility] Imaging Services [address] [place] [address] SCREENING MAMM (CAD), BILAT MR#: [id number] Acct: [id number] Name: DOROTHY KOHLI Rep #: [id number] : 1945 F 72 From: Elder Christine MD PCP: Dominic Holcomb DO Status: [facility] CLI Study: SCREENING MAMM (CAD), BILAT Date of Exam: 08/25/17 Exam# [id number] Ordering Dr: Dominic Holcomb DO MAMMOGRAPHY - BILATERAL SCREENING REASON FOR EXAM: Female, 72 years old. Routine annual screening examination. PERTINENT HISTORY: Personal history of breast cancer. Prior left lumpectomy and radiation treatment. On with breast cancer. TECHNIQUE: Digital bilateral breast rosales (3D mammographic acquisition) in the CC and MLO projections. 2-D mediolateral oblique (MLO) and craniocaudad (CC) views of both breasts were obtained. CAD: Full Field Digital Mammography with Computer Added Detection was performed. COMPARISON: Comparison is made with prior outside examination dated August 05, 2016. FINDINGS: Breast Composition: The breasts are almost entirely fatty. The patient is status post lumpectomy in the upper deep portion of the left breast. Postoperative changes are seen. There has been no change as compared to prior study. No other significant abnormalities are identified. There has been no significant change since the prior study. BI/SCREENING MAMM (CAD), BILAT IMPRESSION: Stable bilateral screening mammogram. Yearly follow-up mammogram recommended. (A) ASSESSMENT CATEGORY: BIRADS Category 2: Benign. A letter regarding these results will be sent to the patient by the facility within 30 days. Approximately 10% of breast cancers are not detected by mammography. A normal mammogram should not delay biopsy of a clinically suspicious abnormality. [id number] Electronically Signed: Elder Christine MD at 9:25 EDT Tel [phone], Service support , CC: Dominic Holcomb DO Police Judge: Signed BILAT BRST SCREEN Observed: 08/25/2017 Status: F Source: [facility] ROSALES ADD-ON 1:09 PM [facility] REPOSIT[facility] Imaging Services [address] [place] [address] Bilat Brst Screen Rosales Add-On MR#: [id number] Acct: [id number] Name: DOROTHY KOHLI Rep #: [id number] : 1945 F 72 From: Elder Christine MD PCP: Dominic Holcomb DO Status: REG CLI Study: Bilat Brst Screen Rosales Add-On Date of Exam: 08/25/17 Exam# [id number] Ordering Dr: Dominic Holcomb DO MAMMOGRAPHY - BILATERAL SCREENING REASON FOR EXAM: Female, 72 years old. Routine annual screening examination. PERTINENT HISTORY: Personal history of breast cancer. Prior left lumpectomy and radiation treatment. On with breast cancer. TECHNIQUE: Digital bilateral breast rosales (3D mammographic acquisition) in the CC and MLO projections. 2-D mediolateral oblique (MLO) and craniocaudad (CC) views of both breasts were obtained. CAD: Full Field Digital Mammography with Computer Added Detection was performed. COMPARISON: Comparison is made with prior outside examination dated August 05, 2016. FINDINGS: Breast Composition: The breasts are almost entirely fatty. The patient is status post lumpectomy in the upper deep portion of the left breast. Postoperative changes are seen. There has been no change as compared to prior study. No other significant abnormalities are identified. There has been no significant change since the prior study. BI/Bilat Brst Screen Rosales Add-On IMPRESSION: Stable bilateral screening mammogram. Yearly follow-up mammogram recommended. (A) ASSESSMENT CATEGORY: BIRADS Category 2: Benign. A letter regarding these results will be sent to the patient by the facility within 30 days. Approximately 10% of breast cancers are not detected by mammography. A normal mammogram should not delay biopsy of a clinically suspicious abnormality. [id number] Electronically Signed: Elder Christine MD at 9:25 EDT Tel [phone], Service support , CC: Dominic Holcomb DO Police Judge: Signed CBC W/DIFF, AUTOMATED Collected: 07/16/2017 Status: F Source: [facility] 9:06 AM [facility] REPOS[facility] TYPE CODE TESTS RESULT OUT OF RANGE REFERENCE UNITS LAB L100.1000 4.4-11.0 K/mm3 Normal WBC 5.6 LAB L100.1200 4.2-5.4 M/mm3 Normal RBC 4.57 LAB L100.1300 12.0-15.0 g/dl Normal HGB 13.8 LAB L100.1400 37-47 % Normal HCT 41.0 LAB L100.1500 81-99 fL Normal MCV 89.7 LAB L100.1600 27.0-32.0 pg Normal MCH 30.2 LAB L100.1700 32-36 g/gl Normal MCHC 33.7 LAB L100.1810 11.6-14.6 % Normal RDW CV 14.0 LAB L100.1820 35.1-43.9 fl High RDW SD 45.9 LAB L100.1900 150-450 K/mm3 Low PLT 134 LAB L100.2000 6.2-12.0 fl Normal MPV 10.2 LAB L100.2100 47-70 % Normal NEUT% 69.3 LAB L100.2200 19-41 % Low LY% 17.8 LAB L100.2300 0-10 % Normal MONO% 6.7 LAB L100.2400 0-5 % High EO% 5.5 LAB L100.2500 0-1 % Normal BASO% 0.5 LAB L100.2550 0.0-0.9 % Normal IM GRAN % 0.200 Result Comment: IG% - Immature Granulocytes (promyelocytes, myelocytes and metamyelocytes) > 1% indicates that a LEFT SHIFT is Present. LAB L100.2620 2.0-7.7 X10 3/uL Normal Absolute Neut 3.9 LAB L100.2720 0.83-4.51 X10 3/ul Normal Absolute Lymph 1.00 Performed By: #### L100.0100 #### [facility] [address] [facility] [place], [place], [address] COMPREHENSIVE METABOLIC Collected: 07/16/2017 Status: F Source: [facility] 9:06 AM [facility]POS[facility] TYPE CODE TESTS RESULT OUT OF RANGE REFERENCE UNITS LAB L501.0100 74-106 mg/dL Normal GLU 96 Result Comment: Please note revised GLUCOSE reference range effective 2017. LAB L501.1000 7-18 mg/dL High BUN 20 LAB L501.1100 0.55-1.02 mg/dL Normal CREAT,SERUM 0.68 Result Comment: The validity of the calculated GFR AND GFRAA in patients over 70 years has not been determined. Clinical correlation is essential. LAB L501.1110 >60 mL/min Normal EST GFR 90 Result Comment: Non- GFR Calc LAB L501.1115 >60 mL/min Normal EST GFR - AA 109 Result Comment: GFR Calc LAB L501.1300 10-20 RATIO High BUN/CRE 29.2 LAB L501.1500 6.4-8.2 g/dL T Normal PROT 6.9 LAB L501.1800 3.2-5.0 g/dL Normal ALB 3.8 LAB L501.1950 2.2-4.2 g/dL Normal GLOB 3.1 LAB L501.2000 0.9-2.4 RATIO Normal A/G 1.2 LAB L501.2200 8.5-10.1 mg/dL CA Normal 8.5 LAB L501.4100 15-37 U/L Normal AST 25 LAB L501.4305 45-117 U/L High ALK P 129 LAB L501.4405 13-56 U/L Normal ALT 24 Result Comment: Please note revised ALT reference range effective 2017. LAB L501.4600 0.20-1.00 mg/dL Normal T BILI 1.00 LAB L501.5300 136-145 mmol/L Normal NA 143 LAB L501.5600 3.5-5.1 mmol/L Normal K 4.2 LAB L501.5900 98-107 mmol/L Normal CL 106 LAB L501.6100 21.0-32.0 mmol/L Normal CO2 30.0 LAB L501.6200 5-15 Normal GAP 7 Performed By: #### L500.4050, L500.4100, L501.9520 #### [facility] [address] [place], [address] LIPID PROFILE Collected: 07/16/2017 Status: F Source: [facility] 9:06 AM [facility] REPOS[facility] TYPE CODE TESTS RESULT OUT OF RANGE REFERENCE UNITS LAB L501.4900 200 mg/dL Normal CHOL 190 Result Comment: <200 mg/dL Desirable 200-240 mg/dL Borderline >240 mg/dL High Risk LAB L501.5000 mg/dL Normal TRIG 124 Result Comment: The drugs N-Acetylcysteine and Metamizole may falsely depress this assay. Serum Triglycerides Reference Interval Normal <150 mg/dL Borderline high 150 - 199 mg/dL High 200 - 499 mg/dL Very High > or = 500 mg/dL LAB L501.6400 mg/dL Low HDL 36 Result Comment: The drugs N-Acetylcysteine and Metamizole may falsely depress this assay. Reference Range HDL <40 mg/dL Low HDL Cholesterol HDL >or= 60 mg/dL High HDL Cholesterol LAB L501.6500 0-130 mg/dL Normal LDL 129 LAB L501.6600 5-40 mg/dL Normal VLDL 25 Performed By: #### L500.4050, L500.4100, L501.9520 #### [facility] [address] [place], [address] THYROID STIM HORMONE Collected: 07/16/2017 Status: F Source: [facility] ([facility]) 9:06 AM [facility] REPOS[facility] TYPE CODE TESTS RESULT OUT OF RANGE REFERENCE UNITS LAB L501.9520 0.358-3.74 uIU/mL Normal TSH 2.74 Performed By: #### L500.4050, L500.4100, L501.9520 #### [facility] [address] [place], [address] ALLERGIES ALLERGIES DATE TYPE / CODE NAME / CODE REACTION SEVERITY SOURCE 05/18/2018 Drug No Known Unknown [facility] Allergy/4160 Allergies/F00 Hospital 33822(SNOMED [id number](RXNOR Repository CT) M) ENCOUNTERS ENCOUNTERS ADMIT/DISCHARGE ACCOUNT ADMITTING ENCOUNTER LOCATION SOURCE NUMBER CLASS 05/18/2018 [id number] Ambulatory BMSBuilding:[place] 3 [place].[facility] Repository 05/18/2018 [id number] Ambulatory [place] 3 [facility] ing:OMD Repository 05/03/2018 [id number] Ambulatory [place] 5 [facility] ing:LABSPEC Repository 04/20/2018 [id number] Ambulatory [place] 1 [facility] ing:LAB Repository 04/20/2018 [id number] Ambulatory BMSBuilding:W [place] 6 [facility] Repository 04/18/2018 [id number] Ambulatory [place] 8 [facility] ing:CT Repository 04/12/2018 [id number] Ambulatory [place] 6 [facility] ing:BFHLAB Repository 10/18/2017 [id number] Ambulatory [place] 6 [facility] ing:PSN Repository 10/18/2017 [id number] Ambulatory BMSBuilding:W [place] 8 [facility] Repository 10/06/2017 [id number] Ambulatory [place] 8 [facility] ing:BFHLAB Repository 08/25/2017 [id number] Ambulatory [place] 8 [facility] ing:OPBI Repository 07/16/2017 [id number] Ambulatory [place] 2 [facility] ing:BFHLAB Repository PAYERS PAYERS ENCOUNTER GUARANTOR PAYER SUBSCRIBER SOURCE 05/18/2018 DOROTHY A Primary DOROTHY A [place] [id number] Insurance:MEDICARE DOYLEDOB: [address], PART A [facility] [id number] [address]Pwq: Number: Repository [id number] () Date:2018-05-12 05/18/2018 Secondary DOROTHY A [place] Insurance:DELFINONAPolicy DOYLEDOB: [facility] Number: [id number] [id number] Repository Date:[id number] [address]QA: 05/18/2018 Tertiary NOT GIVENUNK [place] Insurance:SELF PAY [facility] Number: Effective Repository Date:2018-05-18 05/18/2018 DOROTHY A Primary DOROTHY A [place] [id number] Insurance:MEDICARE DOYLEDOB: [address], PART A [facility] [id number] [address]Bsp: Number: Repository [id number] () Date:2018-05-12 05/18/2018 Secondary DOROTHY A [place] Insurance:CIGNAPolicy DOYLEDOB: [facility] Number: [id number] [id number] Repository Date:3545-75-24[id number] [address]JT: 05/18/2018 Tertiary NOT GIVENUNK [place] Insurance:SELF PAY [facility] Number: Effective Repository Date:2018-05-12 05/03/2018 DOROTHY A Primary DOROTHY A [place] [id number] Insurance:MEDICARE DOYLEDOB: [address] [id number] [address]Zwm: Number: Repository [id number] (HP) Date:2018-05-03 05/03/2018 Secondary DOROTHY A [place] Insurance:CIGNAPolicy DOYLEDOB: Community Number: [id number] Hospital [id number] Repository Date:2121-78-07[address] [place] [address]HG: 05/03/2018 Tertiary NOT GIVENUNK [place] Insurance:SELF PAY [facility] Number: Effective Repository Date:2018-05-03 04/20/2018 DOROTHY A Primary DOROTHY A Aslomon [id number] TR Insurance:MEDICARE DOYLEDOB: [address], [address] [facility] [id number] [facility] [address]Nsq: Number: Repository [id number] (HP) Date:2018-04-20 04/20/2018 Secondary DOROTHY A Salomon Insurance:CIGNAPolicy DOYLEDOB: Community Number: [id number] Hospital [id number] Repository Date:2870-98-16[address], [place] [address]PH: 04/20/2018 Tertiary NOT GIVENUNK Salomon Insurance:SELF PAY [facility] Number: Effective Repository Date:2018-04-20 04/20/2018 DOROTHY A Primary DOROTHY A Salomon [id number] TR Insurance:MEDICARE DOYLEDOB: [address], [address] [facility] [id number] [address]Tel: Number: Repository [id number] () Date:2018-04-20 04/20/2018 Secondary DOROTHY A Salomon Insurance:CIGNAPolicy DOYLEDOB: Community Number: [id number] Hospital [id number] Repository Date:8695-82-97[address] [address]MM: 04/20/2018 Tertiary NOT GIVENUNK Salomon Insurance:SELF PAY [facility] Number: Effective Repository Date:2018-04-20 04/18/2018 DOROTHY A Primary DOROTHY A Salomon [id number] TR Insurance:MEDICARE DOYLEDOB: [address], PART A [facility] [id number] [facility] [address]Scp: Number: Repository [id number] () Date:2018-04-13 04/18/2018 Secondary DOROTHY A [place] Insurance:CIGNAPolicy DOYLEDOB: Community Number: [id number] Hospital [id number] Repository Date:9998-83-09Z[address], [place] [address]KB: 04/18/2018 Tertiary NOT GIVENUNK [place] Insurance:SELF PAY [facility] Number: Effective Repository Date:2018-04-13 04/12/2018 DOROTHY A Primary DOROTHY A Salomon [id number] TR Insurance:MEDICARE DOYLEDOB: [address], PART A [facility] [id number] [facility]rise [facility] Treatment Center [address]Zbw: Number: Repository [id number] () Date:2018-04-12 04/12/2018 Secondary DOROTHY A Salomon Insurance:CIGNAPolicy DOYLEDOB: Community Number: [id number] Hospital [id number] Repository Date:1783-81-57[address]VDY[place], [place] [address]CU: 04/12/2018 Tertiary NOT GIVENUNK Salomon Insurance:SELF PAY [facility] Number: Effective Repository Date:2018-04-12 10/18/2017 LAZARA Gonzalez Primary DOROTHY A [place] [id number] TR Insurance:MEDICARE DOYLEDOB: Community [facility], PART A [facility] [id number] [facility] [address]Mpl: Number: Repository [id number] (HP) Date:2017-10-08 10/18/2017 Secondary DOROTHY A [place] Insurance:CIGNAPolicy DOYLEDOB: Community Number: [id number] Hospital [id number] Repository Date:5241-18-24ZJ [address], [place] [address]KD: 10/18/2017 Tertiary NOT GIVENUNK [place] Insurance:SELF PAY [facility] Number: Effective Repository Date:2017-10-08 10/18/2017 LAZARA Gonzalez Primary DOROTHY A Salomon [id number] TR Insurance:MEDICARE DOYLEDOB: Community [address] [place], [place] [address]E, PART A [facility] [id number] [facility] [address]Wyv: Number: Repository [id number] (HP) Date:2017-10-08 10/18/2017 Secondary DOROTHY A Salomon Insurance:CIGNAPolicy DOYLEDOB: Community Number: [id number] [facility] [id number] Repository Date:6311-39-36[address]WPUVVDL[place]PN, [place] [address]KX: 10/18/2017 Tertiary NOT GIVENUNK Salomon Insurance:SELF PAY [facility] Number: Effective Repository Date:2017-10-18 10/06/2017 LAZARA Gonzalez Primary DOROTHY A Salomon [id number] TR Insurance:MEDICARE DOYLEDOB: Community [facility], PART A [facility] [id number] [facility]rise [facility] Treatment Center [address]Kti: Number: Repository [id number] (HP) Date:2017-10-06 10/06/2017 Secondary DOROTHY A Salomon Insurance:CIGNAPolicy DOYLEDOB: Community Number: [id number] Hospital [id number] Repository Date:2578-11-55[address]FUTDJCHNQMF, [place] [address]WD: 10/06/2017 Tertiary NOT GIVENUNK Salomon Insurance:SELF PAY [facility] Number: Effective Repository Date:2017-10-06 08/25/2017 LAZARA Gonzalez Primary DOROTHY A Salomon [id number] Insurance:MEDICARE DOYLEDOB: Community [facility] PART A [facility] [id number], Number: [place]ository [place] [id number]: [id number] Date:2017-08-03 () 08/25/2017 Secondary DOROTHY A [place] Insurance:CIGNAPolicy DOYLEDOB: [facility] Number: [id number] Hospital [id number] Repository Date:4322-62-03[address]QYK[address], [place] [address]YB: 08/25/2017 Tertiary NOT GIVENUNK Salomon Insurance:SELF PAY [facility] Number: Effective Repository Date:2017-08-03 07/16/2017 LAZARA Gonzalez Primary DOROTHY A Salomon [id number] TR Insurance:MEDICARE DOYLEDOB: [address] PART A [facility] [id number] Sunrise Regional Treatment Center [address]Yze: Number: Repository [id number] () Date:2017-07-16 07/16/2017 Secondary DOROTHY A Salomon Insurance:CIGNAPolicy DOYLEDOB: Community Number: [id number] Hospital [id number] Repository Date:8434-71-74[address]XJHZEZKS[place]Q, [place] [address]DT: 07/16/2017 Tertiary NOT GIVENUNK Salomon Insurance:SELF PAY [facility] Number: Effective Repository Date:2017-07-16
== END ==
PROVIDERS: Family Provider Family Medicine; PCP Family Medicine; Visit Provider Family Medicine
DX: R59.1 Generalized enlarged lymph nodes (principal); D48.7 Neoplasm of uncertain behavior of other specified sites
CPT/HCPCS: 81001; 82378; 83690; 85025; 85652; 86140; 86301; 87086

== ENCOUNTER → 2018-04-18 15:41 | Outpatient (CLI) | payer MEDICARE, OTHER, SELFPAY ==
--- NOTE | 2018-04-18 15:43 | CT_ITS ---
STUDY: CT SOFT TISSUE NECK WITH CONTRAST REASON FOR EXAM: Female, 72 years old. History of breast cancer with radiation RADIATION DOSAGE (If Supplied By Facility): CTDIvol = ( 17.47 ) mGy, DLP = ( 2346.07 ) mGycm TECHNIQUE: The patient was scanned in a multi-detector CT scanner. High resolution transaxial imaging was performed following intravenous administration of 100CC ml of Isovue 300 contrast material. Sagittal and coronal images were reconstructed. Individualized dose optimization techniques were used for this CT. COMPARISON: None. FINDINGS: SUPRAHYOID HEAD AND NECK IC DESIGN ENGINEER SPACE (INCLUDING SUPRAZYGOMATIC PORTION): Normal with no evidence of an accessory parotid lobe. No calcification in parotid duct. PARAPHARYNGEAL SPACE: Normal and symmetric. No evidence of asymmetric pterygoid plexus. RETROPHARYNGEAL SPACE: Normal with no enlarged nodes of Rouvier laterally CAROTID SPACE: Normal PERIVERTEBRAL SPACE: The prevertebral and paraspinal components are normal. PAROTID SPACE: Negative PHARYNGEAL MUCOSAL SPACE: The nasopharyngeal and oropharyngeal spaces including the tongue base are normal with no tonsillitis, adenoidal hypertrophy or any neoplastic processes. ORAL CAVITY : The mucosal surfaces including the anterior two thirds of the tongue and the submandibular and sublingual spaces are normal INFRAHYOID HEAD AND NECK: VISCERAL SPACE: The there is a left lobe of thyroid with a 2.2 cm area of low attenuation within in the enlarged left lobe THE CAROTID, RETROPHARYNGEAL, PERIVERTEBRAL and POSTERIOR CERVICAL SPACES (Containing The Spinal Accessory Lymph Nodes): Normal . ORBITS AND PARANASAL SINUSES: Negative CERVICAL LYMPH NODES: Extensive the left supraclavicular (level 4) adenopathy with the largest lymph node measuring 3.4 x 2.8 cm. Adenopathy is a level 1 level IIa and IIb bilaterally and level 3. 2 small low 5 lymph nodes bilaterally.. A large 2.2 cm right upper paratracheal (station 2R) is noted. CT/Soft Tissue Neck WITH Contrast IMPRESSION: The uterus spaces in the head and neck region clear except for the presence of a lesion in the left lobe of the thyroid gland. Extensive adenopathy from levels 1 through 7. The largest is on the left side of level 4 and measures 3.4 x 2.8 cm Electronically Signed: Michael Corona MD at 5:09 EST Tel , Service support ,
--- NOTE | 2018-04-18 15:43 | CT_ITS ---
STUDY: CT CHEST WITH CONTRAST REASON FOR EXAM: Female, 72 years old. Breast cancer with radiation. Lymphadenopathy. RADIATION DOSAGE (If Supplied By Facility): CTDIvol = ( 17.47 ) mGy, DLP = ( 2346.07 ) mGycm TECHNIQUE: Transaxial imaging was performed following intravenous administration of 100CC ml of Isovue 300 contrast material. Individualized dose optimization techniques were used for this CT. COMPARISON: None. FINDINGS: There are pathologically enlarged supraclavicular and axillary lymph nodes. Audiovisual Lead Technician axillary lymph nodes measure up to 2.1 cm in short axis on the right and 1.7 cm in short axis on the left. There is a round low-attenuation focus within the left lobe of the thyroid gland measuring up to 2.2 cm. There is no focal consolidation. There are no suspicious pulmonary nodules. There is a single bulla within the left upper lobe. There is minimal right basilar atelectasis. There are calcifications of the coronary arteries. There are pathologically enlarged mediastinal and hilar lymph nodes; access services representative lymph nodes include a 1.6 cm short axis paratracheal and a 1 cm in short axis right hilar node. There are calcified nonpathologic enlarged left hilar and mediastinal lymph nodes visualized as well. Normal enhanced pulmonary arteries. Normal aorta arch and descending thoracic aorta. There are multi-level degenerative changes of the thoracic spine. There are postsurgical changes within the left breast. Please note there is a separate dedicated CT report of the abdomen and pelvis. CT/Chest WITH Contrast IMPRESSION: Pathologically enlarged supraclavicular, axillary, mediastinal and hilar lymph nodes highly suspicious for an underlying neoplastic process such as lymphoma. Indeterminate 2.2 cm low-attenuation focus within the left lobe of the thyroid gland, consider ultrasound for further evaluation. Atherosclerosis. Electronically Signed: Elena James MD at 18:00 EST Tel , Service support ,
--- NOTE | 2018-04-18 15:44 | CT_ITS ---
STUDY: CT ABDOMEN AND PELVIS WITH CONTRAST REASON FOR EXAM: Female, 72 years old. Breast cancer with radiation. Left lumpectomy. Swollen lymph nodes. RADIATION DOSAGE (If Supplied By Facility): CTDIvol = ( 17.47 ) mGy, DLP = ( 2346.07 ) mGycm TECHNIQUE: Transaxial images were obtained from the dome of the diaphragm to the symphysis pubis without oral contrast. 100 ml of Isovue 300 contrast was administered. Sagittal and coronal images were reconstructed. Individualized dose optimization techniques were used for this CT. COMPARISON: None. FINDINGS: Please note there is a separate dedicated CT report of the chest. Normal liver. Normal gallbladder and extrahepatic biliary system. The spleen measures up to 20 cm in the craniocaudal dimension. Normal pancreas. There are pathologically enlarged lymph nodes within the holden hepatis, gastrohepatic region and mesentery. There is a conglomerate of lymph nodes within the mesentery which measures up to 10.5 x 4.5 x 13.5 cm. Normal bilateral adrenal glands. There is mild bilateral hydronephrosis present. Normal visualized stomach. Normal small intestine. Normal colon. There is non-visualization of the appendix. There is diffuse atherosclerotic calcification of the abdominal aorta, without a demonstrated aneurysm. Normal inferior vena cava. There is retroperitoneal lymphadenopathy with enlarged nodes greater than 10-15mm in the short axis. There are pathologically enlarged lymph nodes throughout the pelvis visualized as well; sales representative canvas products lymph nodes include a 2.3 cm in short axis left pelvic sidewall and a 1.6 cm right pelvic sidewall lymph node. There are enlarged inguinal lymph nodes measuring up to 2 cm on the right and 1.9 cm on the left. Normal urinary bladder. Normal abdominal wall. There are diffuse degenerative changes of the visualized lumbar spine. There is a grade 1 anterior spondylosis is of L4 on L5. CT/Abdomen/Pelvis W IV Cont ONLY IMPRESSION: Extensive lymphadenopathy throughout the abdomen and pelvis most pronounced within the mesentery and retroperitoneum concerning for an underlying neoplastic process such as lymphoma. Splenomegaly. Atherosclerosis. Degenerative changes. Electronically Signed: Elena James MD at 16:39 EST Tel , Service support ,
== END ==
PROVIDERS: Family Provider Family Medicine; PCP Family Medicine; Referring Provider Family Medicine; Visit Provider Family Medicine
DX: R59.1 Generalized enlarged lymph nodes (principal); Z85.3 Personal history of malignant neoplasm of breast
CPT/HCPCS: 70491; 71260; 74177; Q9967

== ENCOUNTER → 2018-04-20 15:30 | Outpatient (CLI) | payer MEDICARE, OTHER, SELFPAY ==
--- NOTE | 2018-04-20 15:48 | EKG12_ITS ---
Test Reason : PRE OP Blood Pressure : / mmHG Vent. Rate : 073 BPM Atrial Rate : 073 BPM P-R Int : 156 ms QRS Dur : 110 ms QT Int : 398 ms P-R-T Axes : 049 -09 047 degrees QTc Int : 438 ms Normal sinus rhythm Confirmed by HARLEY TOBIAS, STEVE ([id number]), television news video editor LEXI HUTCHINSON ([id number]) on 04/22/2018 3:29:29 PM Referred By: Coleman Contreras Confirmed By:STEVE SOUZA MD
[2018-04-20 16:03] LABS: Hematocrit 39.6 % (37-47); Hemoglobin 13.5 g/dl (12.0-15.0); Mean Corp Hgb Conc 34.1 g/gl (32-36); Mean Corpuscular Hgb 30.4 pg (27.0-32.0); Mean Corpuscular Volume 89.2 fL (81-99); Platelet Count 110 K/mm3 (150-450); RBC Distribution Width CV 13.5 % (11.6-14.6); Red Blood Count 4.44 M/mm3 (4.2-5.4); White Blood Count 5.1 K/mm3 (4.4-11.0)
[2018-04-20 16:10] LABS: Scan Indicated on CBC? Y/N NO
[2018-04-20 16:20] LABS: Anion Gap 7 (5-15); BUN 19 mg/dL (7-18); BUN/Creat Ratio 19.5 RATIO (10-20); Calcium,Total 9.1 mg/dL (8.5-10.1); Chloride 106 mmol/L (98-107); Creatinine, Serum 0.98 mg/dL (0.55-1.02); EST Glomerular Filtration Rate 60 mL/min (>60); Est Glom Filt Rate - Afr Amer 72 mL/min (>60); Glucose 101 mg/dL (74-106); Sodium Level 144 mmol/L (136-145)
== END ==
PROVIDERS: Family Provider Family Medicine; PCP Family Medicine; Referring Provider Otolaryngology Otolaryngology/Facial Plastic Surgery; Visit Provider Otolaryngology Otolaryngology/Facial Plastic Surgery
DX: Z01.818 Encounter for other preprocedural examination (principal)
CPT/HCPCS: 36415; 80048; 85027; 93005

== ENCOUNTER → 2018-05-03 12:20 | Outpatient (CLI) | payer MEDICARE, OTHER, SELFPAY ==
--- NOTE | 2018-05-03 | IMM_PTH ---
PATIENT: DOROTHY KOHLI LOC: [facility] U#:[id number] AGE/SX: 79/F ROOM: RE05/03/[address]: Dr. Coleman Contreras MD : 1945 BED: DIS: SPEC #: [id number] RECD: 05/04/18 10:46 STATUS: JAGRUTI REQ #: [id number] SIMEON: 05/03/18 00:[address]: Coleman Contreras DEPT: IMMUNOHISTOCHEMISTRY RECD BY: Danielle Montemayor ENTERED: 05/04/18 10:47 SP TYPE: IMMUNO OTHR DR: Dr. Dominic Holcomb DO Tissues: Lymph node of neck, NOS Procedures: BCL-2 (add) BCL-6 (add) CD10 (add) CD138 (add) CD15 (add) CD20 (add) CD23 (add) CD30 (add) CD43 (add) CD45 (add) CD5 (add) CD79A (add) CYCLIN (add) KI-67 (add) MUM1 (add) C-MYC (add) Pankeratin (add) CD3 (initial) PHYSICIAN & [address] [address] SPECIMEN INFORMATION: Tissue Source: Lymph node, right neck Clinical Info: Right neck mass Specimen Number: [id number] #2 CPT code: 53611, 55064 x17 METHODOLOGY: Deparaffinized sections of prefer/formalin-fixed tissue or PAP/DQ stained slides are incubated with monoclonal/polyclonal antibodies/oligonucleotide probes. Localization is made via biotin free immunoperoxidase method. Appropriate controls are performed and reacted as expected. Results on target cell population are indicated in the following table: RESULTS: ANTIBODY / CLONE RESULT Block 2 CD3 (PS1) negative CD5 (SP10) negative CD20 (L26) positive CD45 (RP2/18) positive CD79a (11E3) positive CD138 (B-A38) negative AE1-3 (AE1/AE3/PCK26) negative CD10 (56C6) positive CD15 (MMA) negative CD23 (1B12) negative CD30 (Ajit-H2) negative BCL-2 (bcl-2/100/D5) positive BCL-6 (WT172R/A8) positive Cyclin D1/BCL-1 (SP4) negative MUM1 (MRQ-43) positive, <10% C-MYC (Y69) negative CD43 (L60) negative Ki-67 (30-9) positive, low These tests were developed and their performance characteristics determined by [facility]. They may not have been cleared or approved by the U.S. Food and Drug Administration. The FDA has determined that such clearance or approval is not necessary. INTERPRETATION: Lymph node, right neck, biopsy: Consistent with follicle center lymphoma, low grade. AM:meghna 05/05/18 Case has been reviewed in consultation with Dr. Viveros who concurs with the above diagnosis. IDC:SJ
--- NOTE | 2018-05-03 10:00 | LYM_PTH ---
PATIENT: DOROTHY KOHLI LOC: [facility] U#:[id number] AGE/SX: 79/F ROOM: RE05/03/[address]: Dr. Coleman Contreras MD : 1945 BED: DIS: SPEC #: [id number] RECD: 05/03/18 11:54 STATUS: JAGRUTI REChacorta #: [id number] SIMEON: 05/03/18 10:[address]: Coleman Contreras DEPT: SURGICAL PATHOLOGY RECD BY: Carlos Manuel Adames ENTERED: 05/03/18 12:28 SP TYPE: LYM NODES OTHR DR: Dr. Dominic Holcomb, [facility] Tissues: Lymph node of neck, NOS Procedures: Surgery Specimen Level IV Diff Quik Stain (control) H & E (control) HEADER OPERATION: Right neck biopsy PRE-OP DIAGNOSIS: Right neck mass TISSUE SUBMITTED: Lymph node, right neck (in saline) MICROSCOPIC DIAGNOSIS Right neck lymph node, biopsy: Consistent with follicle center lymphoma, low grade. AM:meghna 05/05/18 COMMENT Immunohistochemistry ([id number]) supports the above diagnosis. Flow cytometry analysis performed at [facility] supports the above diagnosis. The complete flow analysis is viewable in patient's EMR. Touch prep smears (Diff-Quik and H & E stains) reveal a polytypic lymphocyte population. Case has been reviewed in consultation with Dr. Viveros who concurs with the above diagnosis. IDC:SJ MICROSCOPIC DESCRIPTION Slides are reviewed. GROSS DESCRIPTION Received in saline is one container labeled with the patient's name and designated lymph node. The specimen consists of one irregular fragment of light cho soft tissue that measures 2 x 1.5 x 0.8 cm. The specimen is totally submitted in two cassettes. A portion is submitted for flow cytometry analysis. / RY:meghna 05/03/18 TC:0 CPT: 26424, 17251
--- NOTE | 2018-05-03 10:00 | LYM_PTH ---
PATIENT: DOROTHY KOHLI LOC: [facility] U#:[id number] AGE/SX: 79/F ROOM: RE05/03/[address]: Dr. Coleman Contreras MD : 1945 BED: DIS: SPEC #: [id number] RECD: 05/03/18 11:54 STATUS: JAGRUTI REChacorta #: [id number] SIMEON: 05/03/18 10:[address]: Coleman Contreras DEPT: SURGICAL PATHOLOGY RECD BY: Carlos Manuel Adames ENTERED: 05/03/18 12:28 SP TYPE: LYM NODES OTHR DR: Dr. Dominic Holcomb, [facility] Tissues: Lymph node of neck, NOS Procedures: Surgery Specimen Level IV Diff Quik Stain (control) H & E (control) HEADER OPERATION: Right neck biopsy PRE-OP DIAGNOSIS: Right neck mass TISSUE SUBMITTED: Lymph node, right neck (in saline) MICROSCOPIC DIAGNOSIS Right neck lymph node, biopsy: Reactive lymph node tissue. AM:meghna 05/04/18 COMMENT Immunohistochemistry ([id number]) supports the above diagnosis. Flow cytometry analysis performed at [facility] supports the above diagnosis. The complete report is viewable in patient's EMR. Touch prep smears (Diff-Quik and H & E stains) reveal a polytypic lymphocyte population. 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 The present lymph node biopsy does not contain metastatic malignancy. MICROSCOPIC DESCRIPTION Slides are reviewed. GROSS DESCRIPTION Received in saline is one container labeled with the patient's name and designated lymph node. The specimen consists of one irregular fragment of light cho soft tissue that measures 2 x 1.5 x 0.8 cm. The specimen is totally submitted in two cassettes. A portion is submitted for flow cytometry analysis. / RY:meghna 05/03/18 TC:5 CPT: 40522, 11074
== END ==
PROVIDERS: Family Provider Family Medicine; PCP Family Medicine; Referring Provider Otolaryngology Otolaryngology/Facial Plastic Surgery; Visit Provider Otolaryngology Otolaryngology/Facial Plastic Surgery
DX: R22.1 Localized swelling, mass and lump, neck (principal)
CPT/HCPCS: 88305; 88307; 88341; 88342

== ENCOUNTER → 2018-07-14 12:26 | Outpatient (CLI) | payer MEDICARE, OTHER, SELFPAY ==
[2018-05-26 13:27] VITALS: BMI 28.8
--- NOTE | 2018-07-14 12:27 | CT_ITS ---
STUDY: CT ABDOMEN AND PELVIS WITH CONTRAST REASON FOR EXAM: Female, 73 years old. Test, fatigue, hot flashes. Lymphoma follow-up. History of left breast cancer treated with radiation. Additional history [place]/BSO and appendectomy. RADIATION DOSAGE (If Supplied By Facility): CTDIvol = ( 20.13 ) mGy, DLP = ( 2581.8 ) mGycm TECHNIQUE: Transaxial images were obtained from the dome of the diaphragm to the symphysis pubis without oral contrast. Isovue 300 100 IV was administered. Sagittal and coronal images were reconstructed. Individualized dose optimization techniques were used for this CT. COMPARISON: CT abdomen pelvis with IV contrast April 18, 2018. FINDINGS: The visualized lung bases are unremarkable. The visualized portions of the heart are within normal limits. There is hepatomegaly, the right lobe measuring 21.4 cm in height. The patent portal vein diameter is 18 mm. Normal gallbladder and extrahepatic biliary system. The diameter of the common bile duct is 6.5 mm. There is mild to moderate splenomegaly, measuring 15.2 x 22.1 x 9.15 cm. Normal pancreas. Normal bilateral adrenal glands. Normal size right kidney. Normal size left kidney. There is stable borderline pelvocaliectasis. Normal visualized stomach. Normal small intestine. Normal colon. There is non-visualization of the appendix. There is stable moderate atherosclerotic calcification of the abdominal aorta and proximal iliac arteries, without a demonstrated aneurysm. The inferior vena cava is difficult to separate from the stable, extensive retroperitoneal adenopathy that extends from the periceliac area and holden hepatis down to the iliofemoral distributions and groins. This lymph node mass also encases the central mesenteric vessels and renal veins. Normal urinary bladder. There is absence of the uterus consistent with a prior hysterectomy, but the lower vaginal cuff/floor of the pelvis is not fully included in the [id number]. There is a stable small, elongated umbilical hernia containing fat. There are stable degenerative changes of the visualized lumbar spine, most prominent at L4-5. There is stable mild leftward subluxation of L4 on L5 and a 14 degree levoscoliosis centered at L4. CT/Abdomen/Pelvis W IV Cont ONLY IMPRESSION: 1. Extensive retroperitoneal adenopathy unchanged from previous exam, as noted. 2. Hepatosplenomegaly again noted. 3. Stable borderline pelvic caliectasis, but no ureteral dilatation to clearly indicate urinary tract obstruction. 4. The bowel is unremarkable without signs of obstruction. The appendix is not visualized. 5. Stable moderate aortoiliac atherosclerotic calcific plaquing. No demonstrated aortic aneurysm. 6. Prior hysterectomy. Electronically Signed: Ford Brownlee MD at 19:09 EDT , Service support ,
--- NOTE | 2018-07-14 12:27 | CT_ITS ---
STUDY: CT CHEST/THORAX WITH CONTRAST REASON FOR EXAM: Female, 73 years old. Weakness, fatigue, hot flashes. Lymphoma follow-up. History of left breast cancer treated with radiation. RADIATION DOSAGE (If Supplied By Facility): CTDIvol = ( 20.13 ) mGy, DLP = ( 2581.8 ) mGycm TECHNIQUE: Transaxial imaging was performed following intravenous administration of Isovue 300 100 IV. Multiplanar coronal and sagittal images were reformatted. Individualized dose optimization techniques were used for this CT. COMPARISON: CT chest with IV contrast April 18, 2018; PET CT May 23, 2018. FINDINGS: Again seen are numerous lower cervical and supraclavicular lymph nodes ranging from nonspecific 1 cm size to mildly enlarged. There is a dominant, confluent cluster of left supraclavicular lymph nodes that measures approximately 2.4 x 2.8 x 4.2 cm also again seen is a stable 2.35 x 2.5 x 2.1 cm hypodense lesion with some marginal enhancement in the lower left lobe of the thyroid gland. There is notable narrowing of the left internal jugular vein as it passes between this thyroid lesion and the confluent cluster of left supraclavicular lymph nodes. Stable 2.5 x 1.7 x 2.05 cm pneumatocele in the anterior left upper lobe. Smaller pneumatoceles also again seen in the anterior margin of the right superior sulcus. Minor chronic changes in the mid to lower lung gutierrez. No new infiltrate. There is no demonstrated pleural abnormality. Normal heart size and pericardium. There is early atherosclerotic calcification at the proximal left anterior descending and right coronary arteries. Again seen is mediastinal and bilateral hilar adenopathy. A few of the left hilar and subcarinal lymph nodes contain coarse calcifications. Normal enhanced pulmonary arteries. Mild calcification of the aortic valve as well as mild calcification of the thoracic aortic arch extending into the main trunk of the left subclavian artery. There are borderline degenerative changes of the thoracic spine. Surgical clips are again seen in the posterior soft tissues of the left breast. Although not fully included in the field of view, there is grossly stable splenomegaly. CT/Chest WITH Contrast IMPRESSION: 1. Stable enhanced CT Chest examination with lower cervical and supraclavicular as well as mediastinal and bilateral hilar adenopathy, as described. 2. Postsurgical changes in the left breast. 3. No acute infiltrate or pleural effusion. 4. Grossly stable splenomegaly. See report of CT abdomen pelvis also done today. Electronically Signed: Ford Brownlee MD at 19:52 EDT , Service support ,
--- NOTE | 2018-07-14 12:27 | CT_ITS ---
STUDY: CT SOFT TISSUE NECK WITH CONTRAST REASON FOR EXAM: Female, 73 years old. Weakness, fatigue, hot flashes. Follow-up lymphoma. History of left breast cancer treated with radiation. RADIATION DOSAGE (If Supplied By Facility): CTDIvol = ( 20.13 ) mGy, DLP = ( 2581.8 ) mGycm TECHNIQUE: The patient was scanned in a multi-detector CT scanner. High resolution transaxial imaging was performed following intravenous administration of Isovue 300 100 IV. Sagittal and coronal images were reconstructed. Individualized dose optimization techniques were used for this CT. COMPARISON: CT soft tissues of the neck April 18, 2018; PET/CT May 15, 2018. FINDINGS: There is a stable 1.95 x 1.5 x 1.6 cm soft tissue nodule in the anterior aspect of the right parotid gland consistent with an enlarged lymph node Normal left parotid gland. Normal bilateral stationary engineer apprentice spaces. Normal bilateral parapharyngeal spaces. Normal bilateral carotid spaces. Normal bilateral sublingual and submandibular glands and spaces. Normal visualized nasopharynx. Normal retropharyngeal space. Normal perivertebral space. Normal visualized bilateral faucial tonsils. The visualized tongue, tongue base and oropharynx are normal. 2 numerous to count bilateral cervical lymph nodes ranging from nonspecific size to mildly enlarged are again identified. One of the largest is a confluent cluster of left supraclavicular nodes measuring roughly 4.25 x 3.4 x 2.3 cm. There is notable mass effect on the lower aspect of the left internal jugular vein at this level. There is no abnormal contrast enhancement. Normal epiglottis, bilateral vallecula and hypopharynx. The pre-epiglottic and paraglottic adipose spaces are normal. Normal visualized bilateral piriform sinuses, aryepiglottic folds, vocal cords, and arytenoid-cricoid articulations. Normal subglottic trachea. There is a stable 2.4 x 3.0 x 2.2 cm hypodense lesion with mild peripheral enhancement in the left lobe of the thyroid gland. Mildly irregular calcifications are also seen in both thyroid lobes. 2.15 cm pneumatocele seen in the anterior left upper lobe, while a smaller pneumatocele in the anterior periphery of the right superior sulcus is unchanged. Normal visualized paranasal sinuses. There are stable multilevel degenerative changes of the cervical spine. CT/Soft Tissue Neck WITH Contrast IMPRESSION: 1. Extensive cervical adenopathy again identified, grossly unchanged. This includes a stable 1.95 cm noted within the anterior margin of the right parotid gland. 2. There is notable narrowing/mass effect on the lower aspect of left internal jugular vein, which courses between a confluent 4 cm cluster of left supraclavicular lymph nodes and a stable 2.4 cm hypodense lesion in the lower left lobe of the thyroid gland. Electronically Signed: Ford Brownlee MD at 19:41 EDT , Service support ,
[2018-07-14 12:45] LABS: CREATININE FINGERSTICK 0.9 mg/dL (0.55-1.02)
[2018-07-14 13:28] LABS: Absolute Lymphocyte Count 1.14 X10^3/ul (0.83-4.51); Basophil# 0.03 X10^3/uL; Basophil% 0.5 % (0-1); Eosinophil# 0.42 X10^3/uL; Eosinophils% 6.9 % (0-5); Hematocrit 40.5 % (37-47); Hemoglobin 13.6 g/dl (12.0-15.0); Lymphocyte # 1.14 X10^3/ul (4.0); Lymphocyte % 18.8 % (19-41); Mean Corp Hgb Conc 33.6 g/gl (32-36); Mean Corpuscular Hgb 30.5 pg (27.0-32.0); Mean Corpuscular Volume 90.8 fL (81-99); Mean Platelet Vol. 9.9 fl (6.2-12.0); Monocyte# 0.49 X10^3/uL; Monocyte% 8.1 % (0-10); Neutrophil # 3.97 X10^3/uL (2.7-7.7); Neutrophil % 65.5 % (47-70); Platelet Count 119 K/mm3 (150-450); RBC Distribution Width CV 13.8 % (11.6-14.6); RBC Distribution Width SD 45.4 fl (35.1-43.9); Red Blood Count 4.46 M/mm3 (4.2-5.4); White Blood Count 6.1 K/mm3 (4.4-11.0)
[2018-07-14 13:29] LABS: POSITIVE COUNT NO; POSITIVE DIFFERENTIAL NO; POSITIVE MORPHOLOGY NO
[2018-07-14 13:51] LABS: ALB/GLOB Ratio 1.4 RATIO (0.9-2.4); AST(SGOT) 33 U/L (15-37); Alanine Aminotransfer ALT/SGPT 24 U/L (13-56); Albumin, Serum 4.1 g/dL (3.2-5.0); Alkaline Phosphatase 193 U/L (45-117); Anion Gap 3 (5-15); BUN 16 mg/dL (7-18); BUN/Creat Ratio 21.4 RATIO (10-20); Calcium,Total 8.5 mg/dL (8.5-10.1); Chloride 105 mmol/L (98-107); Creatinine, Serum 0.75 mg/dL (0.55-1.02); EST Glomerular Filtration Rate 81 mL/min (>60); Est Glom Filt Rate - Afr Amer 98 mL/min (>60); Globulin 2.9 g/dL (2.2-4.2); Glucose 93 mg/dL (74-106); LDH 196 U/L (84-246); Sodium Level 138 mmol/L (136-145); Uric Acid 7.3 mg/dL (2.6-6.0)
== END ==
PROVIDERS: Family Provider Family Medicine; PCP Family Medicine; Referring Provider Internal Medicine Hematology & Oncology; Visit Provider Internal Medicine Hematology & Oncology
DX: C50.919 Malignant neoplasm of unspecified site of unspecified female breast (principal); C82.90 Follicular lymphoma, unspecified, unspecified site; D69.6 Thrombocytopenia, unspecified
CPT/HCPCS: 36415; 70491; 71260; 74177; 80053; 83615; 84550; 85025; Q9967

== ENCOUNTER 2018-07-28 05:47 | Day surgery (SDC) | payer MEDICARE, OTHER, SELFPAY ==
[2018-07-26 09:45] VITALS: BMI 28.4
[2018-07-28] VITALS (8 sets, daily range): BP systolic 105–136; BP diastolic 58–67; PULSE 57–72; RESP 16–18; TEMP 36.5–37.2; O2SAT 92–97; BMI 28.8
[2018-07-28] MEDS: Cefazolin 2 GM in 0.9% Normal Saline 100 ML IV (07:13)
[2018-07-28] MEDS: Bupivacaine Mpf 0.5% 30 ML VIAL (07:30)
--- NOTE | 2018-07-28 07:49 | DCINST_ITS ---
Discharge Diet: No Restrictions - Pain medication may cause nausea. You should typically eat light foods as you take your pain medication. Discharge Activity: May Shower - with the bandage in place 1-2 days after surgery. DO NOT SHOWER WHEN YOUR PORT IS ACCESSED. Additional Activity Instructions:: May not drive, work with heavy equipment, or sign legal documents for [address] if you are no longer taking narcotic pain medications. You may drive when you are no longer taking pain medications. Additional Dressing/Incision Instructions:: Leave the bandage on for 2-3 days. When you remove the bandage, leave the steri-strips intact until they fall off. Allergies/Adverse Reactions: Allergies plastic tapes Adverse Reaction (Uncoded 07/28/18 06:11) Rash Medications to take at Discharge Cholecalciferol (Vitamin D3) [Vitamin D3] 2,000 unit PO DAILY 05/16/18 Lutein 40 mg PO DAILY 05/16/18 Melatonin [Melatin] 3 mg PO QHS PRN 05/16/18 Ranitidine HCl [Zantac] 150 mg PO PRN PRN 05/16/18 Tafluprost/Pf [Zioptan 0.0015% Eye Drops] 1 ea OP DAILY 05/16/18 Vit A/Vit C/Vit E/Zinc/Copper [Preservision Areds Tablet] 1 ea PO DAILY 05/16/18 Acetaminophen [Tylenol] 325 mg PO Q4H PRN 07/21/18 Ondansetron [Ondansetron Odt] 8 mg PO Q8H PRN PRN 10 Days #30 tab.rapdis 07/25/18 Hydrocodone Bitart/Apap 5-325 [Basom 5MG-325MG] 1 - 2 tab PO Q4H PRN PRN 6 Days #30 tab 07/28/18 The following prescriptions were given: Hydrocodone Bitart/Apap 5-325 [Basom 5MG-325MG] 1 - 2 tab PO Q4H PRN PRN 6 Days #30 tab PRN Reason: Pain Primary Care Physician: Dominic Holcomb DO [Primary Care Provider] - Test Results: Test results from this visit will be discussed in further detail at your follow- up appointment, if applicable. Please Follow Up With: Aldair Mtz MD - [phone] When: Please plan to follow up in 7 days in the office.
--- NOTE | 2018-07-28 07:49 | PCM.OPRPT ---
Problem List (1) Encounter for adjustment or management of vascular access device Status: Acute Report of Operation Date of Procedure: 07/28/18 Pre-Operative Diagnosis: Vascular catheter fitting or adjustment Post-Operative Diagnosis: Same Surgery/Procedure Performed:: Placement of a right IJ PowerPort Type of Anesthesia:: Local MAC Anesthesiologist: August Diamond Estimated Blood Loss (mL): < 5 cc Description of Procedure: Patient was brought into the operating room placed in the supine position. I ultrasound the right internal jugular area marked the neck appropriately for where the internal jugular vein was located. The neck and chest area were then sterilely prepped and draped in usual fashion. Local was injected into the neck. Seldinger's technique was used to gain access to the internal jugular vein. Guidewire was placed over the needle the needle was removed and fluoroscopy was used to confirm placement. Local was injected in the chest. Incision was made pocket was created with use electrocautery for the port. I nicked the skin in the neck where the guidewire came out to place a dilator over the guidewire and the dilator and sheath over the guidewire removing then the guidewire and dilator leaving the sheath in place. Single lumen port was then placed through the catheter the catheter was removed. Fluoroscopy was used to confirm proper length. I tunneled from the chest up into the neck brought the catheter down cut it to length placed the locking hub onto the catheter the port onto the catheter and secured the 2 with a locking hub. It flushed and irrigated well flushed with 4 cc of hep flush. It was sutured into the pocket created with 2 sutures of 2-0 Prolene. The skin was brought together with deep dermal stitches of 3-0 Vicryl and running 4-0 Monocryl Dermabond was applied sterile dressings were applied and the patient tolerated the procedure well. - Admit VTE Documentation VTE Present on Admission: No VTE Mechan Device Prophylaxis: SCD's VTE Pharm Prophylaxis ordered?: No Reason prophylaxis not ordered:: Treatment Not Indicated
--- NOTE | 2018-07-28 08:27 | RAD_ITS ---
STUDY: X-RAY CHEST REASON FOR EXAM: Female, 73 years old. Port placement. TECHNIQUE: Single AP portable view of the chest. COMPARISON: None. FINDINGS: A right-sided portacatheter has been inserted. The tip is in the midportion of the superior vena cava. Scattered calcified granulomas. There is no demonstrated pleural abnormality. Normal size heart. Normal mediastinum and yamile. Normal visualized pulmonary arteries. Normal visualized aortic arch and descending thoracic aorta. Normal visualized thoracic spine. Normal visualized ribs, clavicles, and shoulders. There is no demonstrated abnormality of the visualized soft tissue structures of the upper abdomen. RAD/CXR for Line Placement IMPRESSION: The tip of the right-sided portacatheter is in the midportion of the superior vena cava. Electronically Signed: Elder Christine, at 9:11 EDT , Service support ,
== END 2018-07-28 09:45 | disposition home or self-care (01) ==
LOC: SDC 05:48 → AC 05:49
PROVIDERS: Family Provider Family Medicine; PCP Family Medicine; Referring Provider Surgery; Visit Provider Surgery
PROC: (CPT 36571; principal; 2018-07-28 07:00)
DX: C82.88 Other types of follicular lymphoma, lymph nodes of multiple sites (principal); Z45.2 Encounter for adjustment and management of vascular access device; M19.90 Unspecified osteoarthritis, unspecified site; Z85.3 Personal history of malignant neoplasm of breast; Z79.899 Other long term (current) drug therapy
CPT/HCPCS: 36571; 71045; 76000; J7120; C1788; J2405

== ENCOUNTER → 2018-10-18 | Outpatient (CLI) | payer MEDICARE, OTHER, SELFPAY ==
[2018-09-27 09:27] VITALS: BMI 28.0
[2018-09-28 16:05] VITALS: BMI 28.0
--- NOTE | 2018-10-18 12:59 | CT_ITS ---
STUDY: CT CHEST WITH CONTRAST REASON FOR EXAM: Female, 73 years old. Follow-up lymphoma RADIATION DOSAGE (If Supplied By Facility): CTDIvol = ( 19.45 ) mGy, DLP = ( 2490.60 ) mGycm TECHNIQUE: Transaxial imaging was performed following intravenous administration of 100 IV Isovue 300. Individualized dose optimization techniques were used for this CT. COMPARISON: 07/14/2018 FINDINGS: Right internal jugular chest port. The lungs are normal. There is no demonstrated pleural abnormality. Normal heart and pericardium. 2.5 cm nodule decreased attenuation and/or enhancement of the left lobe of the thyroid gland and correlation with thyroid ultrasound is recommended. Interval resolution of small mediastinal and hilar lymph nodes consistent with resolved lymphoma. Normal hilar regions. Normal enhanced pulmonary arteries. Normal aorta arch and descending thoracic aorta. Normal osseous structures. There is no demonstrated abnormality of the visualized upper abdomen. CT/Chest WITH Contrast IMPRESSION: Interval resolution of lymphoma in the chest. Electronically Signed: Carlos Manuel Ashley MD at 17:03 EDT Tel , Service support ,
--- NOTE | 2018-10-18 12:59 | CT_ITS ---
STUDY: CT ABDOMEN AND PELVIS WITH CONTRAST REASON FOR EXAM: Female, 73 years old. Lymphoma RADIATION DOSAGE (If Supplied By Facility): CTDIvol = ( 19.45 ) mGy, DLP = ( 2490.60 ) mGycm TECHNIQUE: Transaxial images were obtained from the dome of the diaphragm to the symphysis pubis without oral contrast. 100 IV Isovue 300 was administered. Sagittal and coronal images were reconstructed. Individualized dose optimization techniques were used for this CT. COMPARISON: 07/14/2018 FINDINGS: The visualized lung bases are unremarkable. The visualized portions of the heart are within normal limits. Normal liver. Normal gallbladder and extrahepatic biliary system. There is mild splenomegaly. The spleen has decreased in length from 15.2 cm to 13.2 cm. No focal splenic mass. Normal pancreas. Normal bilateral adrenal glands. Normal right kidney. Normal left kidney. Normal visualized stomach. Normal small intestine. Normal colon. The appendix is visualized and appears normal. There is diffuse atherosclerotic calcification of the abdominal aorta, without a demonstrated aneurysm. Normal inferior vena cava. Markedly interval decrease in the size of the retroperitoneal and mesenteric lymphadenopathy which collectively measured 9 x 12 cm and now measures 2.2 x 6.8 cm consistent with improved lymphoma. Normal urinary bladder. Normal abdominal wall. Normal osseous structures. CT/Abdomen/Pelvis W IV Cont ONLY IMPRESSION: Markedly improved lymphoma with markedly improved retroperitoneal and mesenteric lymphadenopathy and improved splenomegaly. Electronically Signed: Carlos Manuel Ashley MD at 16:54 EDT Tel , Service support ,
--- NOTE | 2018-10-18 12:59 | CT_ITS ---
STUDY: CT SOFT TISSUE NECK WITH CONTRAST REASON FOR EXAM: Female, 73 years old. Lymphoma RADIATION DOSAGE (If Supplied By Facility): CTDIvol = ( 19.45 ) mGy, DLP = ( 2490.60 ) mGycm TECHNIQUE: The patient was scanned in a multi-detector CT scanner. High resolution transaxial imaging was performed following intravenous administration of 100 IV Isovue 300. Sagittal and coronal images were reconstructed. Individualized dose optimization techniques were used for this CT. COMPARISON: 07/14/2018 FINDINGS: Normal bilateral parotid glands. Normal bilateral title searcher spaces. Normal bilateral parapharyngeal spaces. Normal bilateral carotid spaces. Normal bilateral sublingual and submandibular glands and spaces. Normal visualized nasopharynx. Normal retropharyngeal space. Normal perivertebral space. Normal visualized bilateral faucial tonsils. The visualized tongue, tongue base and oropharynx are normal. The visualized cervical lymph nodes (levels I-) are within normal size limits, and maintain normal morphology. There is no demonstrated solid or cystic mass lesion. There is no abnormal contrast enhancement. Normal epiglottis, bilateral vallecula and hypopharynx. The pre-epiglottic and paraglottic adipose spaces are normal. Normal visualized bilateral piriform sinuses, aryepiglottic folds, vocal cords, and arytenoid-cricoid articulations. Normal subglottic trachea. No change in the 2.5 cm nodule decreased attenuation and/or enhancement left lobe of thyroid gland and correlation with thyroid ultrasound is recommended. Normal visualized pulmonary apices. Normal visualized paranasal sinuses. Normal visualized cervical spine. CT/Soft Tissue Neck WITH Contrast IMPRESSION: 1. Interval resolution of bilateral jugular and posterior triangle lymphadenopathy consistent with resolved lymphoma. 2. Persistent 2.5 cm nodule left lobe of thyroid gland and correlation with ultrasound is recommended. Electronically Signed: Carlos Manuel Ashley MD at 16:57 EDT Tel , Service support ,
== END | disposition home or self-care (01) ==
LOC: CT 12:59
PROVIDERS: Family Provider Family Medicine; PCP Family Medicine; Referring Provider Internal Medicine Hematology & Oncology; Visit Provider Internal Medicine Hematology & Oncology
DX: C82.90 Follicular lymphoma, unspecified, unspecified site (principal); Z79.899 Other long term (current) drug therapy
CPT/HCPCS: 70491; 71260; 74177; Q9967; A4216